=== PATIENT | female | born 1975 | race Caucasian/White ===

== ENCOUNTER 2022-10-15 07:59 | Outpatient (OUT) | payer BC, SELFPAY ==
[2022-10-15 08:21] LABS: Basophils Percent Auto 0.6 % (0.2-2.0); Eosinophils Absolute Auto 0.1 10^3/uL (0.0-0.7); Eosinophils Percent Auto 2.1 % (0.9-7.0); Hematocrit 40.2 % (36.0-48.0); Hemoglobin 14.2 g/dL (12.0-16.0); Immature Granulocytes Abs Auto 0.01 10^3/uL (0.00-0.03); Immature Granulocytes Pct Auto 0.2 % (0.0-0.5); Lymphocytes Absolute Auto 1.8 10^3/uL (1.2-3.8); Lymphocytes Percent Auto 34.6 % (20.5-60.0); Mean Corpuscular HGB Conc 35.3 g/dL (29.9-35.2); Mean Corpuscular Hemoglobin 30.1 pg (26.7-34.0); Mean Corpuscular Volume 85.2 fL (81.0-99.0); Mean Platelet Volume 9.8 fL (9.5-13.5); Monocytes Absolute Auto 0.5 10^3/uL (0.3-0.8); Monocytes Percent Auto 8.8 % (1.7-12.0); Neutrophils Absolute Auto 2.8 10^3/uL (1.4-6.5); Neutrophils Percent Auto 53.7 % (43.0-75.0); Platelet Count 262 10^3/uL (150-450); Red Blood Count 4.72 10^6/uL (4.20-5.40); Red Cell Distribution Width 13.5 % (11.0-15.0); White Blood Count 5.1 10^3/uL (4.0-11.0)
[2022-10-15 09:23] LABS: Estimated Average Glucose 82 mg/dL; Glycohemoglobin A1C 4.5 % (4.5-6.2)
[2022-10-15 13:39] LABS: Alanine Aminotransferase 24 U/L (14-59); Albumin Level 3.5 g/dL (3.4-5.0); Alkaline Phosphatase 55 U/L (46-116); Aspartate Amino Transferase 17 U/L (15-37); BUN Creatinine Ratio 11.9; Bilirubin Total 0.6 mg/dL (0.2-1.0); Calcium 8.9 mg/dL (8.5-10.1); Chloride 106 mmol/L (98-107); Chol HDL Ratio 3.7; Cholesterol 227 mg/dL (<=200); Estimated GFR (African America >60 (>=60); Estimated GFR (Non-African Ame >60 (>=60); Globulin 3.6 g/dL; Glucose 103 mg/dL (74-106); HDL Cholesterol 62 mg/dL (40-60); Sodium 139 mmol/L (136-145); Thyroid Stimulating Hormone 3.821 uIU/mL (0.358-3.740); Total Protein 7.1 g/dL (6.4-8.2); Triglycerides 117 mg/dL (<=150); VLDL CHOLESTEROL 23.4 mg/dL
== END 2022-10-15 08:00 | disposition home or self-care (01) ==
LOC: LAB 08:02
PROVIDERS: PCP Family Medicine; Visit Provider Family Medicine
DX: Z00.00 Encounter for general adult medical examination without abnormal findings (principal)
CPT/HCPCS: 36415; 80053; 80061; 83036; 84443; 85025

== ENCOUNTER 2022-11-07 07:24 | Outpatient (OUT) | payer BC, SELFPAY ==
--- NOTE | 2022-11-07 07:26 | MM_ITS ---
Patient: TIM ALVAREZ Exam Date: 11/07/2022 : 1975 Gender:F Ordering : DR Terry Vale . Admission #: [id number] Family : Order #: [id number] CLICK HERE TO VIEW EXAM RADIOLOGY REPORT PROCEDURE: MM TOMOSYNTHESIS SCREENING BI COMPARISON: MG MAMM SCREEN PATTI W CAD, 10/10/2020. MG MAMM SCREEN 3D PATTI CAD, 11/05/2021. INDICATIONS: Screening Calculator Name NCI Breast Cancer Risk Assessment Tool 5 Year Breast Cancer Risk 1.00% Lifetime Breast Cancer Risk 10.30% Personal Breast Cancer No Personal Ovarian Cancer No Treatments None Family Cancers Aunt-paternal with breast cancer at age ~53; Grandfather-maternal with colon cancer at age ~70. LOCATION: [facility] BREAST COMPOSITION: Scattered areas fibroglandular density. FINDINGS: DIAGNOSTIC CATEGORY 1--NEGATIVE. NO CHANGE FROM COMPARISON ASSESSMENT. Scattered benign-appearing calcifications are present. Scattered benign-appearing nodules are present. RIGHT BREAST: No significant suspicious finding. LEFT BREAST: No significant suspicious finding. RECOMMENDATIONS: ROUTINE MAMMOGRAM AND CLINICAL EVALUATION IN 12 MONTHS. PLEASE NOTE: A NORMAL MAMMOGRAM DOES NOT EXCLUDE THE POSSIBILITY OF BREAST CANCER. A CLINICALLY SUSPICIOUS PALPABLE LUMP SHOULD BE BIOPSIED. Dictated by: Nicola Barraza MD on 11/07/2022 at 09:24 Approved by: Nicola Barraza MD on 11/07/2022 at 09:27
== END 2022-11-07 07:25 | disposition home or self-care (01) ==
LOC: MAMMO 07:24
PROVIDERS: PCP Family Medicine; Visit Provider Family Medicine
DX: Z12.31 Encounter for screening mammogram for malignant neoplasm of breast (principal); Z80.3 Family history of malignant neoplasm of breast; Z80.0 Family history of malignant neoplasm of digestive organs
CPT/HCPCS: 77063; 77067

== ENCOUNTER 2023-01-08 08:00 | Outpatient (OUT) | payer BC, SELFPAY ==
[2023-01-08] MEDS: COVID VAC 23-24(12UP)MODERNA/PF 50 MCG/0.5 ML VIAL IM (16:00)
== END 2023-01-08 08:01 | disposition home or self-care (01) ==
LOC: VACCLI 02-27 09:23
PROVIDERS: PCP Family Medicine; Visit Provider Family Medicine
DX: Z23 Encounter for immunization (principal)
CPT/HCPCS: 90480; 91322

== ENCOUNTER 2023-06-08 22:14 | Outpatient (REF) | payer BC, SELFPAY ==
--- OUTSIDE RECORDS SUMMARY | 2023-06-08 22:18 | XMS_ITS | CCD ---
Author Organization [facility] Care Team Providers Care Bookstore Clerk Name Role Phone GERALD, DR BRANTLEY Admitting Unavailable HOY, DR BRANTLEY Attending Unavailable HOY, DR BRANTLEY Consulting Unavailable KARASIK, DR REAL Admitting Unavailable KARASIK, DR REAL Attending Unavailable KARASIK, DR REAL Consulting Unavailable ELAINE, TIP Admitting Unavailable ELAINE, TIP Attending Unavailable ELAINE, TIP Consulting Unavailable KARASIK, DR REAL Admitting Unavailable KARASIK, DR REAL Attending Unavailable NADERER, DR JIMMY Medrano Primary Care Unavailable KARASIK, DR REAL Consulting Unavailable WEST, DR FARZDA Robles Consulting Unavailable ZIEBER, DR ALESSANDRO Ansari Consulting Unavailable PAY, DR SALAZAR Admitting Unavailable PAY, DR SALAZAR Attending Unavailable PAY, DR SALAZAR Consulting Unavailable NADERER, JIMMY Attending Unavailable NILL, Miquel Ansari Attending Unavailable Problems Active Problems Problem Classification Problem Date Documented Date Episodic/Chronic Other female genital disorders (4 sources) Hypertrophy of uterus; Translations: [HYPERTROPHY OF UTERUS] Onset: 11-05-2021 Episodic Other female genital disorders (1 source) Noninflammatory disorder of uterus, unspecified; Translations: [NONINFLAMMATORY DISORDER UTERUS UNS] Onset: 11-07-2021 Episodic Other screening for suspected conditions (not mental disorders or infectious disease) (5 sources) Encounter for screening mammogram for malignant neoplasm of breast; Translations: [Encounter for screening for malignant neoplasm of cervix] Onset: 07-17-2021 Episodic Residual codes; unclassified (1 source) Family history of malignant neoplasm of breast; Translations: [FAMILY HX MALIG NEOPLASM OF BREAST] Onset: 11-07-2021 Episodic Residual codes; unclassified (1 source) Family history of malignant neoplasm of digestive organs; Translations: [FAM HX MALIG NEOPLASM DIGESTIV ORGN] Onset: 11-07-2021 Episodic Unclassified (3 sources) CONTACT W/AND (SUSP) EXPOS COVID-19; Translations: [CONTACT W/AND (SUSP) EXPOS COVID-19] Onset: 09-20-2021 Past or Other Problems Problem Classification Problem Date Documented Date Episodic/Chronic Administrative/social admission (4 sources) Encounter for pre-employment examination; Translations: [ENCOUNTER FOR PRE-EMPLOYMENT EXAM] Onset: 02-22-2021 Episodic Immunizations and screening for infectious disease (1 source) Encounter for screening for human papillomavirus (HPV); Translations: [ENC SCREENING HUMAN PAPILLOMAVIRUS] Onset: 07-18-2021 Episodic Unclassified (1 source) CONTACT W/AND (SUSP) EXPOS COVID-19; Translations: [CONTACT W/AND (SUSP) EXPOS COVID-19] Onset: 09-16-2021 Results Test Name Value Interpretation Reference Range Facil ity Physician Referralon 024 Physician Referral [id number] [id number] Normal [facility] US PELVIS AND TRANSVAGon US PELVIS AND TRANSVAG Begin Addendum #1 Comparison made to an outside study dated 03/23/2017. No report available. The posterior myometrial mass was not definitively seen on the prior exam. A fibroid is still favored Original Report EXAMINATION: US PELVIS AND TRANSVAG HISTORY: Hypertrophy of uterus COMPARISON: No relevant comparison available. FINDINGS: Transabdominal and transvaginal images The uterus is prominent in size, normal in contour measuring 9.2 x 4.8 x 4.8 cm. Posterior myometrial hypoechogenic lesion measuring 1 cm. Endometrium measures 6 mm, normal. Areas of anechoic echogenicity and calcification the cervix, nabothian cysts are favored The ovaries are not visualized No free fluid. IMPRESSION: Prominent uterus with a 1 cm posterior myometrial mass, a fibroid is favored. Normal [facility] MG MAMM SCREEN 3D PATTI CADon 11-05-2021 MG MAMM SCREEN 3D PATTI CAD Patient: TIM ALVAREZ Exam Date: 11/05/2021 : 1975 Gender:F Ordering : DR FARHAN DUMONT . Admission #: [id number] Family : Order #: [id number] CLICK HERE TO VIEW EXAM RADIOLOGY REPORT PROCEDURE: MAMMOGRAM SCREENING 3D BILATERAL CAD COMPARISON: MG MAMM SCREEN PATTI W CAD, 10/10/2020. INDICATIONS: Screening mammography Calculator Name NCI Breast Cancer Risk Assessment Tool 5 Year Breast Cancer Risk 0.90% Lifetime Breast Cancer Risk 10.50% Personal Breast Cancer No Personal Ovarian Cancer No Treatments None Family Cancers Aunt-paternal with breast cancer at age 53; Grandfather-maternal with colon cancer at age 70. LOCATION: [facility] BREAST COMPOSITION: Scattered areas fibroglandular density. FINDINGS: DIAGNOSTIC CATEGORY 1--NEGATIVE. RIGHT BREAST: No significant suspicious finding. No significant change has occurred. LEFT BREAST: No significant suspicious finding. No significant change has occurred. RECOMMENDATIONS: ROUTINE MAMMOGRAM AND CLINICAL EVALUATION IN 12 MONTHS. PLEASE NOTE: A NORMAL MAMMOGRAM DOES NOT EXCLUDE THE POSSIBILITY OF BREAST CANCER. A CLINICALLY SUSPICIOUS PALPABLE LUMP SHOULD BE BIOPSIED. Dictated by: Alessandro Taylor M.D. on 11/06/2021 at 10:35 Approved by: Alessandro Taylor M.D. on 11/06/2021 at 10:44 Normal [facility] SYMPTOMATIC COVID-19 ANTIGEN on 09-16-2021 EUA Statement SEE BELOW Normal [facility] Comment on above: Result Comment: This test has not been FDA cleared or approved, but has been authorized by the FDA under an Emergency Use Authorization (EUA) for use by authorized laboratories certified under CLIA that meet the requirements to perform moderate or high complexity testing. This test has been authorized only for the detection of proteins from SARS-CoV-2, not for any other viruses or pathogens. The emergency use of this test is authorized for the duration of the declaration that circumstances exist justifying the authorization of emergency use of in vitro diagnostic tests for detection and/or diagnosis of Covid-19 under section 564(b)(1) of the Act, 21 U.S.C. 360bbb-3(b)(1), unless the declaration is terminated or authorization is revoked sooner. Performed By: #### C BRIDGETTES #### [facility] [address] [place] [address] Dr. Yvette Deewy SARS-CoV-2 (COVID-19) RNA LEONIE+probe Ql (Unsp spec) Negative Normal NEGATIVE [facility] Comment on above: Performed By: #### C BRIDGETTES #### [facility] [address] [address] [address] Yvette Dewey PAP ACOG PANEL 2: 30 to 65on 07-24-2021 . . Normal [facility] Comment on above: Result Comment: Perf ormed at: WB Performed By: #### [id number] #### [facility] [address] [address] [address] Yvette Dewey Age Gdln ACOG Testing 30-65 Normal [facility] Comment on above: Performed By: #### [id number] #### [facility] [address] [address] [address] Yvette Dewey DIAGNOSIS: Comment Normal [facility] Comment on above: Result Comment: NEGA TIVE FOR INTRAEPITHELIAL LESION OR MALIGNANCY. Performed at: WB Performed By: #### [id number] #### [facility] [address] [place] [address] Dr. Yvette Dewey HPV Aptima Negative Normal Negative [facility] Comment on above: Result Comment: This nucleic acid amplification test detects fourteen high-risk HPV types (16,18,31,33,35,39,45,51,52,56,58,59,66,68) without differentiation. Performed at: =G Performed By: #### [id number] #### [facility] [address] [place] [address] Dr. Yvette Dewey Methodology: Comment Normal [facility] Comment on above: Result Comment: This liquid based ThinPrep(R) pap test was screened with the use of an image guided system. Performed at: WB Performed By: #### [id number] #### [facility] [address] [place] [address] Dr. Yvette Dewey Note: Comment Normal [facility] Comment on above: Result Comment: The Pap smear is a screening test designed to aid in the detection of premalignant and malignant conditions of the uterine cervix. It is not a diagnostic procedure and should not be used as the sole means of detecting cervical cancer. Both false-positive and false-negative reports do occur. . Performed at: WB Performed By: #### [id number] #### [facility] [address] [place] [address] Dr. Yvette Dewey Performed by: Comment Normal [facility] Comment on above: Result Comment: Ellen Carter, Supervisory Event Executive (ASCP) Performed at: WB Performed By: #### [id number] #### [facility] [address] [place] [address] Dr. Yvette Dewey Specimen adequacy: Comment Normal [facility] Comment on above: Result Comment: Sati sfactory for evaluation. Endocervical and/or squamous metaplastic cells (endocervical component) are present. Performed at: WB Performed By: #### [id number] #### [facility] [address] [place] [address] Dr. Yvette Dewey QUANTIFERON TB GOLD PLUS (NO N-INC)on 02-25-2021 Comment Incubation performed. Normal [facility] Comment on above: Performed By: #### Q NTTBG #### [facility] [address] [place] [address] Dr. Yvette Dewey Criteria Comment Normal [facility] Comment on above: Result Comment: The QuantiFERON-TB Gold Plus result is determined by subtracting the Nil value from either TB antigen (Ag) tube. The mitogen tube serves as a control for the test. Performed By: #### Q NTTBG #### [facility] [address] [place] [address] Dr. Yvette Dewey Mitogen Value >10.00 Normal [facility] Comment on above: Performed By: #### Q NTTBG #### [facility] [address] [place] [address] Dr. Yvette Dewey Nill Value 0.02 IU/mL [facility] Comment on above: Performed By: #### Q NTTBG #### [facility] [address] [place] [address] Dr. Yvette Dewey Quantiferon Gold Plus Negative Normal Negative [facility] Comment on above: Result Comment: Chem iluminescence immunoassay methodology Performed By: #### Q NTTBG #### [facility] [address] [place] [address] Dr. Yvette Dewey TB1 Ag Value 0.28 IU/mL Normal [facility] Comment on above: Performed By: #### Q NTTBG #### [facility] [address] [place] [address] Dr. Yvette Dewey TB2 Ag Value 0.35 IU/mL Normal [facility] Comment on above: Performed By: #### Q NTTBG #### [facility] [address] [place] [address] Dr. Yvette Dewey HEPATITIS B SURFACE ANTIBODY , QUANTon 02-23-2021 Hepatitis B Surf AB Quant 19.4 mIU/mL Normal Immunity>9.9 [facility] Comment on above: Result Comment: Stat us of Immunity Anti-HBs Level Inconsistent with Immunity 0.0 - 9.9 Consistent with Immunity >9.9 Performed By: #### H EPBSRF #### [facility] [address] [place] [address] Dr. Yvette Dewey MMR IMMUNITYon 02-23-2021 Mumps Abs, IgG 38.3 AU/mL Normal Immune >10.9 [facility] Comment on above: Result Comment: Nega tive <9.0 Equivocal 9.0 - 10.9 Positive >10.9 A positive result generally indicates past exposure to Mumps virus or previous vaccination. Performed By: #### M MRIMMU #### [facility] [address] [place] [address] Dr. Yvette Dewey Rubella Antibodies, IgG 1.76 index Normal Immune >0.99 [facility] Comment on above: Result Comment: Non- immune <0.90 Equivocal 0.90 - 0.99 Immune >0.99 Performed By: #### M MRIMMU #### [facility] [address] [place] [address] Dr. Yvette Dewey Rubeola Ab, IgG 39.8 AU/mL Normal Immune >16.4 [facility] Comment on above: Result Comment: Nega tive <13.5 Equivocal 13.5 - 16.4 Positive >16.4 Presence of antibodies to Rubeola is presumptive evidence of immunity except when acute infection is suspected. Performed By: #### M MRIMMU #### [facility] [address] [place], [place] [address] Dr. Yvette Dewey VARICELLA IGG ABon 1 Varicella Zoster IgG >4000 Normal Immune >165 [facility] Comment on above: Result Comment: Nega tive <135 Equivocal 135 - 165 Positive >165 A positive result generally indicates exposure to the pathogen or administration of specific immunoglobulins, but it is not indication of active infection or stage of disease. Performed By: #### V ARCEL #### [facility] [address] [place], [place] [address] Dr. Yvette Dewey Encounters Encounter Date Encounter Type Care Provider Facility Start: 04-28-2023 ambulatory Miquel PARAR Facility :[facility] Start: 03-31-2023 ambulatory Miquel PARRA [facility] Start: 03-30-2023 End: 03-30-2023 ambulatory JIMMY DAS Not Available Start: 01-17-2022 End: 01-18-[address] FERCHO DUARTE Facility:[facility] Start: 11-05-2021 End: 11-06-[address] FARHAN DUMONT Facility:[facility] Start: 09-16-2021 End: 09-17-2021 ambulatory TIP HENRY Facility:[facility] Start: 07-17-2021 End: 07-17-[address] FARHAN DUMONT Facility:[facility] Start: 02-22-2021 End: 02-23-[address] MARTIN ROMAN Facility:[facility] Payers Date Payer Category Payer Unknown [id number] 2019 Unknown [id number] 1975 Unknown [id number] .. [id number] 1975 Unknown [id number] 1975 Unknown [id number] 1975 Unknown [id number] 1975 Unknown [id number] 2.16.8 [id number] 1959 Self-pay Unknown [id number] 2.16.84 [id number] Unknown [id number] 2.16.84 [id number] Summary Purpose Family History No Family History Records FoundNo Family History Records FoundNo Family History Records Found Advance Directives No Advanced Directives Records FoundNo Advanced Directives Records FoundNo Advanced Directives Records Found Additional Source Comments INFORMATION SOURCE (unrecogn ized section and content) DATE CREATED AUTHOR 01/21/2022 [facility] DATE CREATED AUTHOR AUTHOR'S ORGANIZ ATION 03/30/2023 [facility] EPIC DATE CREATED AUTHOR AUTHOR'S ORGANIZ ATION 04/24/2023 [facility] FOR RECORDS PERTAINING TO PATIENTS WHO ARE OR HAVE BEEN ENROLLED IN A CHEMICAL DEPENDENCY/SUBSTANCEABUSE PROGRAM, SOME INFORMATION MAY BE OMITTED. This clinical summary was aggregated from multiple sources. Caution should be exercised in using it in the provision of clinical care. This summary normalizes information from multiple sources, and as a consequence, information in this document may materially change the coding, format and clinical context of patient data. In addition, data may be omitted in some cases. CLINICAL DECISIONS SHOULD BE BASED ON THE PRIMARY CLINICAL RECORDS. [facility]. provides no warranty or guarantee of the accuracy or completeness of information in this document.
[2023-06-12 13:10] LABS: Age Gdln ACOG Testing Note (.); HPV Aptima Negative (Negative); IGP, Aptima HPV, rfx 16/18,45 Note (.)
== END 2023-06-08 22:15 | disposition home or self-care (01) ==
LOC: LAB 22:14
PROVIDERS: PCP Family Medicine; Visit Provider Physician Assistant
DX: Z01.419 Encounter for gynecological examination (general) (routine) without abnormal findings (principal)
CPT/HCPCS: 87624; G0145

== ENCOUNTER 2023-12-15 17:41 | Outpatient (OUT) | payer OTHER, SELFPAY ==
--- OUTSIDE RECORDS SUMMARY | 2023-12-15 17:45 | XMS_ITS | CCD ---
Author Organization [facility] Care Team Providers Care Car Top Bolter Name Role Phone GERALD, DR BRANTLEY Admitting [...] KARASIK, DR REAL Consulting Unavailable WEST, DR FARZAD Robles Consulting Unavailable ZIEBER, DR ALESSANDRO Ansari Consulting Unavailable PAY, DR SALAZAR Admitting Unavailable PAY, DR SALAZAR Attending Unavailable PAY, DR SALAZAR Consulting Unavailable NILL, Miquel Ansari Attending Unavailable NADERER, JIMMY Attending Unavailable ALEKSEY, KALA Attending Unavailable Problems Active Problems Problem Classification [...] Facil ity Physician Referralon 024 Physician Referral [phone] [id number] Normal [facility] US PELVIS AND TRANSVAGon US PELVIS [...] mass, a fibroid is favored. Normal [facility] MG MAMM SCREEN 3D PATTI CADon 11-05-2021 MG MAMM SCREEN 3D PATTI CAD Patient: TIM ALVAREZ Exam Date: 11/05/2021 : 1975 Gender:F Ordering : DR FARHAN DUMONT . Admission #: [id number] Family : Order #: [id number] CLICK HERE TO VIEW EXAM RADIOLOGY REPORT [...] colon cancer at age 70. LOCATION: [facility] BREAST COMPOSITION: Scattered areas fibroglandular [...] Taylor M.D. on 11/06/2021 at 10:44 Normal [facility] SYMPTOMATIC COVID-19 ANTIGEN on 09-16-2021 EUA Statement SEE BELOW Normal [facility] Comment on above: Result Comment: This test [...] is revoked sooner. Performed By: #### C VDAGS #### [facility] [address] [place] [address] Dr. Yvette Dewey SARS-CoV-2 (COVID-19) RNA LEONIE+probe Ql (Unsp spec) Negative Normal NEGATIVE [facility] Comment on above: Performed By: #### C VDAGS #### [facility] [address] [place] [address] Dr. Yvette Dewey PAP ACOG PANEL 2: 30 to 65on 07-24-2021 . . Normal [facility] Comment on above: Result Comment: Perf ormed at: WB Performed By: #### [id number] #### [facility] [address] [place] [address] Dr. Yvette Dewey Age Gdln ACOG Testing -65 [facility] Comment on above: Performed By: #### [id number] #### [facility] [address] [place] [address] Dr. Yvette Dewey DIAGNOSIS: Comment Normal [facility] Comment on above: Result Comment: NEGA TIVE FOR INTRAEPITHELIAL LESION OR MALIGNANCY. Performed at: WB Performed By: #### [id number] #### [facility] [address] [place] [address] Dr. Yvette Dewey HPV Aptima Negative Normal Negative [facility] Comment on above: Result Comment: This nucleic acid amplification test detects fourteen high-risk HPV types (16,18,31,33,35,39,45,51,52,56,58,59,66,68) without differentiation. Performed at: =G Performed By: #### [id number] #### [facility] [address] [place] [address] Dr. Yvette Dewey Methodology: Comment Normal [facility] Comment on above: Result Comment: This liquid based ThinPrep(R) pap test was screened with the use of an image guided system. Performed at: WB Performed By: #### [id number] #### [facility] [address] [place] [address] Dr. Yvette Dewey Note: Comment Normal [facility] Comment on above: Result Comment: The Pap smear is a screening test designed to aid in the detection of premalignant and malignant conditions of the uterine cervix. It is not a diagnostic procedure and should not be used as the sole means of detecting cervical cancer. Both false-positive and false-negative reports do occur. . Performed at: WB Performed By: #### [id number] #### [facility] [address] [place] [address] Dr. Yvette Dewey Performed by: Comment Normal [facility] Comment on above: Result Comment: Ellen Carter, Supervisory Social Work Coordinator (ASCP) Performed at: WB Performed By: #### [id number] #### [facility] [address] [place] [address] Dr. Yvette Dewey Specimen adequacy: Comment Normal [facility] Comment on above: Result Comment: Sati sfactory for evaluation. Endocervical and/or squamous metaplastic cells (endocervical component) are present. Performed at: WB Performed By: #### 4 [id number] #### [facility] [address] [place] [address] Dr. Yvette Dewey QUANTIFERON TB GOLD PLUS (NO N-INC)on 02-25-2021 Comment Incubation performed. Normal [facility] Comment on above: Performed By: #### Q NTTBG #### [facility] [address] [place] [address] Dr. Yvette Dewey Criteria Comment [facility] Comment on above: Result Comment: The QuantiFERON-TB Gold Plus result is determined by subtracting the Nil value from either TB antigen (Ag) tube. The mitogen tube serves as a control for the test. Performed By: #### Q NTTBG #### [facility] [address] [place] [address] Dr. Yvette Dewey Mitogen Value >10.00 [facility] Comment on above: Performed By: #### Q NTTBG #### [facility] [address] [place] [address] Dr. Yvette Dewey Nill Value 0.02 IU/mL [facility] Comment on above: Performed By: #### Q NTTBG #### [facility] [address] [place] [address] Dr. Yvette Dewey Quantiferon Gold Plus Negative Normal Negative [facility] Comment on above: Result Comment: Chem iluminescence immunoassay methodology Performed By: #### Q NTTBG #### [facility] [address] [place] [address] Dr. Yvette Dewey TB1 Ag Value 0.28 IU/mL Normal [facility] Comment on above: Performed By: #### Q NTTBG #### [facility] [address] [place] [address] Dr. Yvette Dewey TB2 Ag Value 0.35 IU/mL Normal [facility] Comment on above: Performed By: #### Q NTTBG #### [facility] [address] [place] [address] Dr. Yvette Dewey HEPATITIS B SURFACE ANTIBODY , QUANTon 02-23-2021 Hepatitis B Surf AB Quant 19.4 mIU/mL Normal Immunity>9.9 [facility] Comment on above: Result Comment: Stat us of Immunity Anti-HBs Level Inconsistent with Immunity 0.0 - 9.9 Consistent with Immunity >9.9 Performed By: #### H EPBSRF #### [facility] [address] [place] [address] Dr. Yvette Dewey MMR IMMUNITYon 02-23-2021 Mumps Abs, IgG 38.3 AU/mL Normal Immune >10.9 [facility] Comment on above: Result Comment: Nega tive <9.0 Equivocal 9.0 - 10.9 Positive >10.9 A positive result generally indicates past exposure to Mumps virus or previous vaccination. Performed By: #### M MRIMMU #### [facility] [address] [place] [address] Dr. Yvette Dewey Rubella Antibodies, IgG 1.76 index Normal Immune >0.99 [facility] Comment on above: Result Comment: Non- immune <0.90 Equivocal 0.90 - 0.99 Immune >0.99 Performed By: #### M MRIMMU #### [facility] [address] [place] [address] Dr. Yvette Dewey Rubeola Ab, IgG 39.8 AU/mL Normal Immune >16.4 [facility] Comment on above: Result Comment: Nega tive <13.5 Equivocal 13.5 - 16.4 Positive >16.4 Presence of antibodies to Rubeola is presumptive evidence of immunity except when acute infection is suspected. Performed By: #### M MRIMMU #### [facility] [address] [place], [place] [address] Dr. Yvette Dewey VARICELLA IGG ABon Varicella Zoster IgG >4000 Normal Immune >165 [facility] Comment on above: Result Comment: Nega tive <135 Equivocal 135 - 165 Positive >165 A positive result generally indicates exposure to the pathogen or administration of specific immunoglobulins, but it is not indication of active infection or stage of disease. Performed By: #### V ARCEL #### [facility] [address] [place], [place] [address] Dr. Yvetet Dewey Encounters Encounter Date Encounter Type Care Provider Facility Start: 06-08-2023 End: 06-08-2023 ambulatory KALA RYDER Not Available Start: 04-28-2023 ambulatory Miquel PARRA Facility :[facility] Start: 03-31-2023 ambulatory Miquel PARRA Facility:[facility] Start: 03-30-2023 End: 03-30-2023 ambulatory JIMMY DAS Not Available Start: 01-17-2022 End: 01-18-[address] FERCHO DUARTE Facility:[facility] Start: 11-05-2021 End: 11-06-[address] FARHAN DUMONT Facility:[facility] Start: 09-16-2021 End: 09-17-2021 ambulatory TIP HENRY Facility:[facility] Start: 07-17-2021 End: 07-17-[address] FARHAN DUMONT Facility:[facility] Start: 02-22-2021 End: 02-23-[address] MARTIN ROMAN Facility:[facility] Payers Date Payer Category Payer Unknown [id number] 2019 Unknown [id number] 1975 Unknown [id number] 2.16.84 [id number] 1975 Unknown [id number] 2.16.84 [id number] 1975 Unknown [id number] 2.16.84 [id number] 1975 Unknown [id number] 2.16.8 [id number] 1975 Unknown [id number] 2.16.84 [id number] 1975 Unknown [id number] 2.16.84 [id number] 1959 Self-pay Unknown [id number] 2.16.84 [id number] Unknown [id number] 2.16.84 [id number] Summary Purpose Family History No Family History Records FoundNo Family History Records FoundNo Family History Records Found Advance Directives No Advanced Directives Records FoundNo Advanced Directives Records FoundNo Advanced Directives Records Found Additional Source Comments INFORMATION SOURCE (unrecogn ized section and content) DATE CREATED AUTHOR 01/21/2022 [facility] DATE CREATED AUTHOR AUTHOR'S ORGANIZ ATION 04/24/2023 [facility] DATE CREATED AUTHOR AUTHOR'S ORGANIZ ATION 06/09/2023 [facility] FOR RECORDS PERTAINING TO PATIENTS WHO ARE [...] BE BASED ON THE PRIMARY CLINICAL RECORDS. [facility] [employer] provides no warranty or guarantee of the accuracy or completeness of information in this document.
--- NOTE | 2023-12-15 18:10 | MM_ITS ---
Patient Name: TIM ALVAREZ MR#: [id number] : 1975 Exam Date: 12/15/2023 Ordering Doctor: DR Terry Vale . RADIOLOGY REPORT PROCEDURE: MM TOMOSYNTHESIS SCREENING BI COMPARISON: MM TOMOSYNTHESIS SCREENING BI, 11/07/2022. MG MAMM SCREEN 3D PATTI CAD, 11/05/2021. INDICATIONS: Screening Calculator Name NCI Breast Cancer Risk Assessment Tool 5 Year Breast Cancer Risk 1.00% Lifetime Breast Cancer Risk 10.20% Personal Breast Cancer No Personal Ovarian Cancer No Treatments None Family Cancers Mother with lung cancer at age 69; Aunt-paternal with breast cancer at age ~53; Grandfather-maternal with colon cancer at age ~70. LOCATION: [facility] BREAST COMPOSITION: There are scattered areas of fibroglandular density. FINDINGS: DIAGNOSTIC CATEGORY 1--NEGATIVE. NO CHANGE FROM COMPARISON ASSESSMENT. Scattered benign-appearing calcifications are present. RIGHT BREAST: No significant suspicious finding. Stable focal asymmetry 6 o'clock mid breast LEFT BREAST: No significant suspicious finding. RECOMMENDATIONS: ROUTINE MAMMOGRAM AND CLINICAL EVALUATION IN 12 MONTHS. PLEASE NOTE: A NORMAL MAMMOGRAM DOES NOT EXCLUDE THE POSSIBILITY OF BREAST CANCER. A CLINICALLY SUSPICIOUS PALPABLE LUMP SHOULD BE BIOPSIED. Dictated by: Nicola Barraza MD on 12/16/2023 at 08:00 Approved by: Nicola Barraza MD on 12/16/2023 at 08:02
== END 2023-12-15 17:42 | disposition home or self-care (01) ==
LOC: MAMMO 17:42
PROVIDERS: PCP Family Medicine; Visit Provider Family Medicine
DX: Z12.31 Encounter for screening mammogram for malignant neoplasm of breast (principal); Z80.1 Family history of malignant neoplasm of trachea, bronchus and lung; Z80.3 Family history of malignant neoplasm of breast; Z80.0 Family history of malignant neoplasm of digestive organs
CPT/HCPCS: 77063; 77067

== ENCOUNTER 2024-11-26 08:51 | Outpatient (OUT) | payer BC, SELFPAY ==
--- OUTSIDE RECORDS SUMMARY | 2024-11-26 08:57 | XMS_ITS | Encounter Summary ---
Author Organization [facility] Address [address] [place] [address] Phone Care Team Providers Care Summer School Coordinator Name Role Phone Unavailable Primary Care Provider Unavailabl e Encounter Details Date Type Department Care Team (Late st Contact Info) Description 10/17/2024 Patient Risk Score ACO Care Management [address] [place] [address] Social History Tobacco Use Types Packs/Day Years Used Date Smoking Tobacco: Never Assessed Comments Unknown Sex and Gender Information Value Date Recorded Sex Assigned at Not on file Legal Sex Female 3:43 PM EST Gender Identity Not on file Sexual Orientation Not on file documented as of this encounter Plan of Treatment Not on file documented as of this encounter Visit Diagnoses Not on filedocumented in this encounter
--- OUTSIDE RECORDS SUMMARY | 2024-11-26 08:57 | XMS_ITS | Encounter Summary ---
Author Organization [facility] Address [address] [place] [address] Phone Care Team Providers Care Experimental Plastics Fabricator Name Role Phone Unavailable Primary Care Provider Unavailabl e Encounter Details Date Type Department Care Team (Late st Contact Info) Description 09/16/2024 Patient Risk Score ACO Care Management [address] [place] [address] Social History Tobacco Use Types [...]
--- OUTSIDE RECORDS SUMMARY | 2024-11-26 08:57 | XMS_ITS | Clinical Summary ---
Author Organization [facility] Address [address] [place] [address] Phone Care Team Providers Care Construction Accountant Name Role Phone Unavailable Primary Care Provider Unavailabl e Encounters Date Type Department Care Team Description 11/17/2024 Patient Risk Score ACO Care Management [address] [place] [address] 10/17/2024 Patient Risk Score ACO Care Management [address] [place] [address] 09/16/2024 Patient Risk Score ACO Care Management [address] [facility] [address] [place] [address] from Last 3 Months Social History Tobacco Use Types Packs/Day Years Used Date Smoking Tobacco: Never Assessed Comments Unknown Sex and Gender Information Value Date Recorded Sex Assigned at Not on file Legal Sex Female 3:43 PM EST Gender Identity Not on file Sexual Orientation Not on file Plan of Treatment Health Maintenance Due Date Last Done Comments CT Colonography 1975 Colonoscopy 1975 Colorectal Cancer Screening 1975 FIT-DNA (Cologuard) 1975 FIT 1975 HIV Screening 1975 Lipid Panel 1975 Sigmoidoscopy 1975 Yearly Adult Physical 1975 MMR Vaccines (1 of 1 - Stand robert series) 10/10/1976 Hepatitis C Screening 10/10/1993 Hepatitis B Vaccines (1 of 3 - 19+ 3-dose series) 10/10/1994 Cervical Cancer Screening 10/10/1996 HPV/Cotest 10/10/1996 Pap Smear 10/10/1996 DTaP/Tdap/Td Vaccines (1 - Tdap) 10/10/1997 Mammogram 12/04/2020 12/05/2019 COVID-19 Vaccine (1 - 2024-2 5 season) 2024 Influenza Vaccine (#1) 2024 Zoster Vaccines (1 of 2) 10/10/2025 HIB Vaccines Aged Out No longer eligi ble based on patient's age to complete this topic HPV Vaccines Aged Out No longer eligi ble based on patient's age to complete this topic Hepatitis A Vaccines Aged Out No long er eligible based on patient's age to complete this topic IPV Vaccines Aged Out No longer eligi ble based on patient's age to complete this topic Meningococcal Vaccine Aged Out No cristian lencho eligible based on patient's age to complete this topic Pneumococcal Vaccine: Pediat rics and At-Risk Adult Patients Aged Out No longer amador gible based on patient's age to complete this topic Rotavirus Vaccines Aged Out No longer eligible based on patient's age to complete this topic Procedures Procedure Name Priority Date/Time Associated Diagnosis Comments MAMMOGRAM - ONBASE SCAN 12/05/2019 from Last 3 Months or Most Recently Relevant to Health Maintenance Results * MAMMOGRAM - ONBASE SCAN (12/05/2019) Anatomical Region Laterality Modality Mammography Narrative 12/05/2019 Ordered by an unspecified provider. us Onbase Conversion IMG BI PROCEDURES Final Result from Last 3 Months or Most Recently Relevant to Health Maintenance
--- OUTSIDE RECORDS SUMMARY | 2024-11-26 08:57 | XMS_ITS | Encounter Summary ---
Author Organization [facility] Address [address] [place] [address] Care Team Providers Care Microelectronics Engineer Name Role Phone Terry Vale MD Primary Care Provider [phone] Terry Vale MD Unavailable Encounter Details Date Type Department Care Team (Late st Contact Info) Description 12/16/2023 Clinisync Result Encounter [facility] Department Unsolicited Terry Vale MD [address] [place] [id number] Social History Tobacco Use Types Packs/Day Years Used Date Smoking Tobacco: Never Smokeless Tobacco: Never Alcohol Use Standard Drinks/Week Comments Yes 0 (1 standard drink = 0.6 oz pur e alcohol) Caffeine intake: none Humiliation, Afraid, Rape, and Kick questionnair e Answer Date Recorded Within the last year, have y ou been afraid of your partner or ex-partner? No 03/29/2023 Within the last year, have y ou been humiliated or emotionally abused in other ways by your partner or ex-partner? No Within the last year, have y ou been kicked, hit, slapped, or otherwise physically hurt by your partner or ex-partner? No 03/29/2023 Within the last year, have y ou been raped or forced to have any kind of sexual activity by your partner or ex-partner? No 03/29/2023 Social Connection and Isolat ion Panel [NHANES] Answer Date Recorded In a typical week, how many times do you talk on the phone with family, friends, or neighbors? More than three times a week 03/29/2023 How often do you get togethe r with friends or relatives? Twice a week 03/29/2023 How often do you attend chur ch or anglican services? Patient declined 03/29/2023 Do you belong to any clubs o r organizations such as zoroastrianism groups, unions, fraternal or athletic groups, or school groups? Patient declined 03/29/2023 How often do you attend meet ings of the clubs or organizations you belong to? Patient declined 03/29/2023 Are you , , di vorced, , never , or living with a partner? 03/29/2023 AUDIT-C Answer Date Recorded Q1: How often do you have a drink containing alc ohol? Monthly or less 03/29/2023 Q2: How many drinks containi ng alcohol do you have on a typical day when you are drinking? 1 or 2 03/29/2023 Q3: How often do you have si x or more drinks on one occasion? Never 03/29/2023 Overall Financial Resource Strain (CARDIA) Answe r Date Recorded How hard is it for you to pa y for the very basics like food, housing, medical care, and heating? Not hard at all 03/29/2023 [facility] - Occupational Stress Questionnaire Answer Date Recorded Do you feel stress - tense, restless, nervous, or anxious, or unable to sleep at night because your mind is troubled all the time - these days? Only a little 03/29/2023 Exercise Vital Sign Answer Date Recorde d On average, how many days pe r week do you engage in moderate to strenuous exercise (like a brisk walk)? 2 days 03/29/2023 On average, how many minutes do you engage in exercise at this level? 20 min 03/29/2023 Hunger Vital Sign Answer Date Recorded Within the past 12 months, y ou worried that your food would run out before you got the money to buy more. Never true 03/29/19 24 Within the past 12 months, t he food you bought just didn't last and you didn't have money to get more. Never true 03/29/2023 PRAPARE - Transportation Answer Date Re corded In the past 12 months, has l ack of transportation kept you from medical appointments or from getting medications? No 03/16 In the past 12 months, has l ack of transportation kept you from meetings, work, or from getting things needed for daily living? No 03/29/2023 Housing Stability Vital Sign Answer Colin e Recorded In the last 12 months, was t here a time when you were not able to pay the mortgage or rent on time? No 03/29/19 24 Number of Places Lived in the Last Year Not on f ile 03/29/2023 In the last 12 months, was t here a time when you did not have a steady place to sleep or slept in a assisted (including now)? Patient refused 03/29/2023 Comments No Sex and Gender Information Value Date Recorded Sex Assigned at Not on file Legal Sex Female 7:17 PM EDT Gender Identity Female 03/29/2023 11:10 AM EST Sexual Orientation Not on file documented as of this encounter Plan of Treatment Upcoming Encounters Date Type Department Care Team (Late st Contact Info) Description 10/03/2025 2:45 PM EDT Office Visit [facility] [address] [place] D [address] [phone] Moni Wayne DO [address] [phone] documented as of this encounter Procedures Procedure Name Priority Date/Time Associated Diagnosis Comments MM TOMOSYNTHESIS SCREENING BI 12/16/2023 8:02 AM EDT documented in this encounter Results * MM TOMOSYNTHESIS SCREENING BI (12/16/2023 8:02 AM EDT) Anatomical Region Laterality Modality Other 12/16/2023 8:02 AM EDT Narrative 12/16/2023 8:03 AM EDT [facility] [id number] Mammography Report Signed Patient: TIM ROCA MR#: [id number] : 1975 Acct:[id number] Age/Sex: 48 / F ADM Date: 12/15/23 Loc: MAMMO Attending Dr: Terry Vale M.D. Ordering Physician: Terry Vale M.D. Results: Date of Service: 12/15/23 Follow Up: Procedure(s): MM tomosynthesis screening BI Accession Number(s): [id number] cc: Terry Vale M.D. Patient Name: TIM ROCA MR#: [id number] : 1975 Exam Date: 12/15/2023 Ordering Doctor: DR Terry Vale . RADIOLOGY REPORT PROCEDURE: MM TOMOSYNTHESIS SCREENING BI COMPARISON: MM TOMOSYNTHESIS SCREENING BI, 11/07/2022. MG MAMM SCREEN 3D PATTI CAD, 11/05/2021. INDICATIONS: Screening Calculator Name NCI Breast Cancer Risk Assessment Tool 5 Year Breast Cancer Risk 1.00% Lifetime Breast Cancer Risk 10.20% Personal Breast Cancer No Personal Ovarian Cancer No Treatments None Family Cancers Mother with lung cancer at age 69; Aunt-paternal with breast cancer at age 53; Grandfather-maternal with colon cancer at age 70. LOCATION: [facility] BREAST COMPOSITION: There are scattered areas of fibroglandular density. FINDINGS: DIAGNOSTIC CATEGORY 1--NEGATIVE. NO CHANGE FROM COMPARISON ASSESSMENT. Scattered benign-appearing calcifications are present. RIGHT BREAST: No significant suspicious finding. Stable focal asymmetry 6 o'clock mid breast LEFT BREAST: No significant suspicious finding. RECOMMENDATIONS: ROUTINE MAMMOGRAM AND CLINICAL EVALUATION IN 12 MONTHS. PLEASE NOTE: A NORMAL MAMMOGRAM DOES NOT EXCLUDE THE POSSIBILITY OF BREAST CANCER. A CLINICALLY SUSPICIOUS PALPABLE LUMP SHOULD BE BIOPSIED. Dictated by: Nicola Barraza MD on 12/16/2023 at 08:00 Approved by: Nicola Barraza MD on 12/16/2023 at 08:02 Dictated By: Nicola Barraza M.D. Signed By: 12/16/23802 DD/ 1 TD/TT: Client Engagement Specialist: Procedure Note Radiology, RadiologistMD - 12/16/2023 [place] [address] Mammography Report Signed Patient: TIM ROCA MMR#: [id number] : 1975Acct:[id number] Age/Sex: 48 / FADM Date: 12/15/23 Loc: MAMMO Attending Dr: Terry Vale M.D. Ordering Physician: Terry Vale M.D.Results: Date of Service: 12/15/23Follow Up: Procedure(s): MM tomosynthesis screening BI Accession Number(s): [id number] cc: Terry Vale M.D. Patient Name: TIM ROCA MR#: [id number] : 1975 Exam Date: 12/15/2023 Ordering Doctor: DR Terry Vale . RADIOLOGY REPORT PROCEDURE: MM TOMOSYNTHESIS SCREENING BI COMPARISON: MM TOMOSYNTHESIS SCREENING BI, 11/07/2022. MG MAMM [id number] PATTI CAD, 11/05/2021. INDICATIONS: Screening Calculator Name NCI Breast Cancer Risk Assessment Tool 5 Year Breast Cancer Risk 1.00% Lifetime Breast Cancer Risk 10.20% Personal Breast Cancer No Personal Ovarian Cancer No Treatments None Family Cancers Mother with lung cancer at age 69; Aunt-paternal with breast cancer at age 53; Grandfather-maternal with colon cancer at age 70. LOCATION: [facility] BREAST COMPOSITION: There are scattered areas of fibroglandulardensity. FINDINGS: DIAGNOSTIC CATEGORY 1--NEGATIVE. NO CHANGE FROM COMPARISON ASSESSMENT. Scattered benign-appearing calcifications are present. RIGHT BREAST: No significant suspicious finding. Stable focal asymmetry6 o'clock mid breast LEFT BREAST: No significant suspicious finding. RECOMMENDATIONS: ROUTINE MAMMOGRAM AND CLINICAL EVALUATION IN 12 MONTHS. PLEASE NOTE: A NORMAL MAMMOGRAM DOES NOT EXCLUDE THE POSSIBILITY OFBREAST CANCER. A CLINICALLY SUSPICIOUS PALPABLE LUMP SHOULD BE BIOPSIED. Dictated by: Nicola Barraza MD on 12/16/2023 at 08:00 Approved by: Nicola Barraza MD on 12/16/2023 at 08:02 Dictated By: Nicola Barraza M.D. Signed By:12/16/23802 DD/ 1 TD/TT: Client Engagement Specialist: Terry Vale MD [facility] Final Result documented in this encounter Visit Diagnoses Not on filedocumented in this encounter Care Teams Microelectronics Engineer Relationship Specialty Start Date End Date Terry Vale MD [address] [place] [phone] PCP - General Family Medicine 06/02/23 Terry Vale MD [address] [place] [phone] PCP - [employer] 06/14/24 documented as of this encounter
--- OUTSIDE RECORDS SUMMARY | 2024-11-26 08:57 | XMS_ITS | Encounter Summary ---
Author Organization [facility] Address [address] [place] [address] Phone Care Team Providers Care Brush And Broom Clipper Name Role Phone Unavailable Primary Care Provider Unavailabl e Encounter Details Date Type Department Care Team (Late st Contact Info) Description 11/17/2024 Patient Risk Score ACO Care Management [address] [place] [address] Social History Tobacco Use Types [...]
--- OUTSIDE RECORDS SUMMARY | 2024-11-26 08:57 | XMS_ITS | Clinical Summary ---
Author Organization [facility] Address [address] [place] [id number] Care Team Providers Care Device Repair Technician Name Role Phone Jatinder White MD Primary Care Provider [phone] Allergies No known active allergies Medications NAPROXEN SODIUM (ALEVE ORAL) Take 1 tablet by mouth as needed. Active acetaminophen (TYLENOL) 325 mg tablet Take 650 mg by mouth every 6 hours as needed. Active Active Problems No known active problems Family History Medical History Relation Comments None Brother 2 lung problem [Other] Father age56 doubl e lung transplant due to Black lung Colon Cancer Maternal Grandfather Diabetes Maternal Grandmother Hypertension Maternal Grandmother Stroke Maternal Grandmother Hypertension Mother Cancer Paternal Grandfather Heart Paternal Grandfather Hypertension Paternal Grandfather Heart Paternal Grandmother Hypertension Paternal Grandmother Relation Status Comments Brother 1 Alive Brother 2 Father Alive Maternal Grandfather Maternal Grandmother Mother Alive Paternal Grandfather Paternal Grandmother Social History Tobacco Use Types Packs/Day Years Used Date Smoking Tobacco: Never Alcohol Use Standard Drinks/Week Comments Yes 0 (1 standard drink = 0.6 oz pur e alcohol) once a month Comments Unknown Sex and Gender Information Value Date Recorded Sex Assigned at Not on file Legal Sex Female 11:04 AM EST Gender Identity Not on file Sexual Orientation Not on file Last Filed Vital Signs Vital Sign Reading Time Taken Comments Blood Pressure 140/87 04/04/2014 9:50 AM EST Pulse 99 04/04/2014 9:50 AM EST Temperature 36.9 C (98.5 F) 04/04/2014 9:50 AM EST Respiratory Rate 16 04/04/2014 9:50 AM EST Oxygen Saturation 96% 04/04/2014 9:50 AM EST Inhaled Oxygen Concentration - - Weight 100.2 kg (221 lb) 04/04/2014 9:50 AM EST Height 166.4 cm (5' 5.5 ) 04/04/2014 9:50 AM EST Body Mass Index 36.22 04/04/2014 9:50 AM EST Plan of Treatment Health Maintenance Due Date Last Done Comments Anxiety Screening 10/10/1993 Depression Screening 10/10/1993 HIV Screening 10/10/1993 Hepatitis C Screening 10/10/1993 DTaP,Tdap,Td Vaccine (1 - Tdap) 10/10/1994 Hepatitis B Vaccine (1 of 3 - 19+ 3-dose series) 10/10 Cervical Cancer Screening 10/10/[address] Colonography 10/10/2020 Cologuard (FIT-DNA) 10/10/2020 Colonoscopy 10/10/2020 Colorectal Cancer Screening 10/10/2020 Diabetes Screening 10/10/2020 Fecal Occult Blood 10/10/2020 Lipid Screening 10/10/2020 Sigmoidoscopy 10/10/2020 Influenza Vaccine (#1) 2024 Care Teams Device Repair Technician Relationship Specialty Start Date End Date Jatinder White MD PCP - General Internal Medicine 04/03/14
--- OUTSIDE RECORDS SUMMARY | 2024-11-26 08:58 | XMS_ITS | CCD ---
Author Organization [facility] Care Team Providers Care Finisher [employer] Name Role Phone GERALD, DR BRANTLEY Admitting Unavailable HOY, DR BRANTLEY Attending Unavailable HOY, DR BRANTLEY Consulting Unavailable KARASIK, DR REAL Admitting Unavailable KARASIK, DR REAL Attending Unavailable KARASIK, DR REAL Consulting Unavailable ELAINE, TIP Admitting Unavailable ELAINE, TIP Attending Unavailable ELAINE, TIP Consulting Unavailable KARASIK, DR REAL Admitting Unavailable KARASIK, DR REAL Attending Unavailable NADERER, DR TERRY Medrano Primary Care Unavailable KARASIK, DR REAL Consulting Unavailable WEST, DR FARZAD Robles Consulting Unavailable ZIEBER, DR ALESSANDRO Ansari Consulting Unavailable PAY, DR SALAZAR Admitting Unavailable PAY, DR SALAZAR Attending Unavailable PAY, DR SALAZAR Consulting Unavailable NILL, Jorge Ansari Attending Unavailable Terry Das MD Primary Care Provider [phone] Terry Das MD Unavailable TERRY DAS Attending Unavailable WILHELM, JORGE Celis Referring Unavailable WILHELM, JORGE Celis Attending Unavailable WILHELM, JORGE Celis Referring Unavailable WILHELM, JORGE Celis Attending Unavailable NATAPRAWIRAMNOI Attending Unavailable TERRY DAS Attending Unavailable Medications Current Medications Medication Drug Class(es) Dates Sig (Normalized) Sig (Original) citalopram 10 mg oral tablet (2 sources) Serotonin Reuptake Inhibitor Start: 11-03-2024 take 1 tablet by mouth once daily citalopram (CeleXA) 10 MG tablet Indications: Stress reaction Take 1 tablet (10 mg) by mouth Daily 30 tablet 2 11/03/2024 Active ethinyl estradiol 0.035 mg / norgestimate 0.25 mg oral tablet (2 sources) Progestin, Estrogen Start: 09-23-2023 End: 04-27-2024 take 1 tablet by mouth once daily Sprintec 28 0.25-35 MG-MCG tablet Indications: Encounter for female family planning counseling TAKE 1 TABLET BY MOUTH EVERY DAY 84 tablet 3 09/23/2023 04/27/2024 Discontinued fexofenadine hydrochloride 180 mg oral tablet (11 sources) Histamine-1 Receptor Antagonist take 1 tablet by mouth once daily fexofenadine (Flora) 180 MG tablet Take 180 mg by mouth Daily Active fluticasone propionate 0.05 mg/actuat metered dose nasal spray (11 sources) Corticosteroid take 2 spray(s) nasal route once daily fluticasone (Flonase) 50 MCG/ACT nasal spray Administer 2 sprays into each nostril Daily Shake gently. Before first use, prime pump. After use, clean tip and replace cap. Active take 2 spray(s) nasa l route in the morning fluticasone (Flonase) 50 MCG/ACT nasal spray Administer 2 sprays into each nostril in the morning. Shake gently. Before first use, prime pump. After use, clean tip and replace cap.. Active meloxicam 15 mg oral tablet (9 sources) Nonsteroidal Anti-inflammatory Drug Start: 06-16-2024 End: 06-16-2025 take 1 tablet by mouth once daily meloxicam (Mobic) 15 MG tablet Indications: Right hip pain Take 1 tablet (15 mg) by mouth Daily 30 tablet 11 06/16/2024 06/16/2025 Active 24 hr metoprolol succinate 25 mg extended release oral tablet (11 sources) beta-Adrenergic Holley Start: 04-27-2024 take 0.5 tablet by mouth once daily metoprolol succinate XL (Toprol-XL) 25 MG 24 hr tablet Indications: Paroxysmal SVT (supraventricular tachycardia) (HCC) TAKE 1/2 TABLET BY MOUTH DAILY 45 tablet 3 04/27/2024 Active predniSONE 50 mg oral tablet (2 sources) Start: 04-27-2024 End: 05-03-2024 take 1 tablet by mouth once daily predniSONE (Deltasone) 50 MG tablet Indications: Chronic right shoulder pain Take 1 tablet (50 mg) by mouth Daily for 6 days 6 tablet 04/27/2024 05/03/2024 Active Completed/Discontinued Medications Medication Drug Class(es) Dates Sig (Normalized) Sig (Original) betamethasone 3 mg/ml / betamethasone acetate 3 mg/ml injectable suspension (4 sources) Corticosteroid Start: 06-30-2024 End: 06-30-2024 betamethasone acetate-betamethason e sodium phosphate (Celestone) injection 6 mg Start: 06-30-2024 End: 06-30-2024 6 mg, Intra-articular, Once PRN Procedure, Starting on Carolina 06/30/24 at 1627, For 1 dose 200 actuat levalbuterol 0.045 mg/actuat metered dose inhaler (11 sources) beta2-Adrenergic Agonist Start: 07-15-2023 End: 11-03-2024 take 2 puff(s) by inhalation every six hours for wheezing levalbuterol (Xopenex) 45 MCG/ACT inhaler Indications: Upper respiratory tract infection, unspecified type INHALE 2 PUFFS EVERY 6 HOURS IF NEEDED FOR WHEEZING. 15 g 11 07/15/2023 11/03/2024 Discontinued tranexamic acid 650 mg oral tablet (2 sources) Antifibrinolytic Agent Start: 06-21-2024 End: 06-30-2024 take 2 tablets by mouth in the morning, then take 2 tablets by mouth in the evening, then take 2 tablets by mouth at bedtime tranexamic acid (Lysteda) 650 MG tablet tablet Indications: Menorrhagia with regular cycle Take 2 tablets (1,300 mg) by mouth in the morning and 2 tablets (1,300 mg) in the evening and 2 tablets (1,300 mg) before bedtime. Do all this for 5 days. 30 tablet 06/21/2024 06/30/2024 Problems Active Problems Problem Classification Problem Date Documented Date Episodic/Chronic Anxiety disorders (4 sources) Acute stress disorder; Translations: [Acute stress reaction] Onset: 11-03-2024 11-03-2024 Chronic Cardiac dysrhythmias (11 sources) Paroxysmal supraventricular tachycardia; Translations: [Paroxysmal SVT (supraventricular tachycardia)] Onset: 03-30-2023 03-30-2023 Chronic Contraceptive and procreative management (2 sources) Patient encounter status; Translations: [Encounter for other general counseling and advice on contraception] 09-29-2024 Episodic Gastritis and duodenitis (11 sources) Chronic superficial gastritis; Translations: [Chronic superficial gastritis without bleeding] Onset: 03-30-2023 Resolved: 11-03-2024 03-30-2023 Chronic Menopausal disorders (6 sources) Perimenopausal state; Translations: [Menopausal and female climacteric states] Onset: 11-03-2024 09-29-2024 Chronic Menstrual disorders (2 sources) Irregular periods; Translations: [Irregular menstruation, unspecified] 09-29-2024 Chronic Other female genital disorders (4 sources) Hypertrophy of uterus; Translations: [HYPERTROPHY OF UTERUS] Onset: 11-05-2021 Episodic Other female genital disorders (1 source) Noninflammatory disorder of uterus, unspecified; Translations: [NONINFLAMMATORY DISORDER UTERUS UNS] Onset: 11-07-2021 Episodic Other non-traumatic joint disorders (2 sources) Hip pain; Translations: [Pain in right hip] 06-15-2024 Episodic Other non-traumatic joint disorders (6 sources) Joint pain; Translations: [Pain in unspecified joint] Onset: 11-03-2024 09-29-2024 Episodic Other screening for suspected conditions (not mental disorders or infectious disease) (7 sources) Encounter for screening mammogram for malignant neoplasm of breast; Translations: [Encounter for screening for malignant neoplasm of cervix] Onset: 07-17-2021 Episodic Other upper respiratory disease (11 sources) Allergic rhinitis due to pollen; Translations: [Allergic rhinitis due to pollen] Onset: 03-30-2023 03-30-2023 Chronic Residual codes; unclassified (1 source) Family history of malignant neoplasm of breast; Translations: [FAMILY HX MALIG NEOPLASM OF BREAST] Onset: 11-07-2021 Episodic Residual codes; unclassified (1 source) Family history of malignant neoplasm of digestive organs; Translations: [FAM HX MALIG NEOPLASM DIGESTIV ORGN] Onset: 11-07-2021 Episodic Unclassified (3 sources) CONTACT W/AND (SUSP) EXPOS COVID-19; Translations: [CONTACT W/AND (SUSP) EXPOS COVID-19] Onset: 09-20-2021 Unclassified (2 sources) Chronic pain of right upper limb 07-05-2024 Past or Other Problems Problem Classification Problem Date Documented Da te Episodic/Chronic Administrative/social admission (4 sources) Encounter for pre-employment examination; Translations: [ENCOUNTER FOR PRE-EMPLOYMENT EXAM] Onset: 02-22-2021 Episodic Immunizations and screening for infectious disease (1 source) Encounter for screening for human papillomavirus (HPV); Translations: [ENC SCREENING HUMAN PAPILLOMAVIRUS] Onset: 07-18-2021 Episodic Other gastrointestinal disorders (11 sources) Irritable bowel syndrome with diarrhea; Translations: [Irritable bowel syndrome with diarrhea] Onset: 03-30-2023 Resolved: 11-03-2024 03-30-2023 Chronic Other non-traumatic joint disorders (15 sources) Chronic pain of right upper limb; Translations: [Pain in right shoulder] Onset: 04-27-2024 04-27-2024 Episodic Unclassified (1 source) CONTACT W/AND (SUSP) EXPOS COVID-19; Translations: [CONTACT W/AND (SUSP) EXPOS COVID-19] Onset: 09-16-2021 Results Test Name Value Interpretation Reference Range Facility No Panel Informationon 06-30 Doreen Wagner MA 07/05/2024 11:47 AM L Inj/Asp: R glenohumeral on 06/30/2024 4:27 PM Indications: diagnostic evaluation Details: 25 G needle, ultrasound-guided Medications: 6 mg betamethasone acetate-betamethasone sodium phosphate 6 (3-3) MG/ML Outcome: tolerated well, no immediate complications Consent was given by the patient. [employer] [facility] XR Hip - right 3 [facility] Result: X-rays, permanently saved to the patient's record, are reviewed AP pelvis, right hip taken in the [place] office saved to the permanent record shows moderate to early severe degenerative changes of the inferior medial wall. Her superior space is moderately worn. She does have some fairly prominent lateral acetabular spurs, right worse than left with reactivity with cam effect and impingement on the femoral head and neck. This is consistent with progressive arthritis with femoral acetabular impingement. There is no sign of tumor or infection seen. No sign of avascular necrosis. [employer] [facility] XR Hip - right 3 [facility] Study observation (narrative) [facility] No Panel Informationon 06-07 Remote Assistant Physician Referralon 024 Physician Referral [phone] 03 [id number] TIFF Normal [facility] US PELVIS AND TRANSVAGon US PELVIS AND [...] mass, a fibroid is favored. Normal [facility] MAMM SCREEN 3D PATTI CADon 11-05-2021 MAMM SCREEN 3D PATTI CAD Patient: TIM ROCA Exam Date: 11/05/2021 : 1975 Gender:F Ordering : DR FARHAN DUMONT . Admission #: [id number] Family : Order #: [id number] CLICK HERE TO VIEW EXAM RADIOLOGY REPORT PROCEDURE: MAMMOGRAM SCREENING 3D BILATERAL CAD COMPARISON: MAMM SCREEN PATTI W CAD, 10/10/2020. INDICATIONS: Screening mammography Calculator Name NCI Breast Cancer Risk Assessment Tool 5 Year Breast Cancer Risk 0.90% Lifetime Breast Cancer Risk 10.50% Personal Breast Cancer No Personal Ovarian Cancer No Treatments None Family Cancers Aunt-paternal with breast cancer at age 53; Grandfather-maternal with colon cancer at age 70. LOCATION: [facility] BREAST COMPOSITION: Scattered areas fibroglandular density. FINDINGS: [...] Taylor M.D. on 11/06/2021 at 10:44 Normal [facility] SYMPTOMATIC COVID-19 ANTIGEN on 09-16-2021 EUA Statement SEE BELOW Normal [facility] Comment on above: Result Comment: This [...] sooner. Performed By: #### C VDAGS #### [facility] [address] [place] [address] Dr. Yvette Dewey SARS-CoV-2 (COVID-19) RNA LEONIE+probe Ql (Unsp spec) Negative Normal NEGATIVE [facility] Comment on above: Performed By: #### C VDAGS #### [facility] [address] [place] [address] Dr. Yvette Dewey PAP ACOG PANEL 2: 30 to 65on 07-24-2021 . . Normal [facility] Comment on above: Result Comment: Perf ormed at: WB Performed By: #### [id number] #### [facility] [address] [place] [address] Dr. Yvette Dewey Age Gdln ACOG Testing 30-65 [facility] Comment on above: Performed By: #### [id number] #### [facility] [address] [place] [address] Dr. Yvette Dewey DIAGNOSIS: Comment Normal [facility] Comment on above: Result Comment: NEGA TIVE FOR INTRAEPITHELIAL LESION OR MALIGNANCY. Performed at: WB Performed By: #### [id number] #### [facility] [address] [place] [address] Dr. Yvette Dewey HPV Aptima Negative Normal Negative [facility] Comment on above: Result Comment: This nucleic acid amplification test detects fourteen high-risk HPV types (16,18,31,33,35,39,45,51,52,56,58,59,66,68) without differentiation. Performed at: =G Performed By: #### [id number] #### [facility] [address] [place] [address] Dr. Yvette Dewey Methodology: Comment Normal [facility] Comment on above: Result Comment: This liquid based ThinPrep(R) pap test was screened with the use of an image guided system. Performed at: WB Performed By: #### [id number] #### [facility] [address] [place] [address] Dr. Yvette Dewey Note: Comment Normal [facility] Comment on above: Result Comment: The Pap smear is a screening test designed to aid in the detection of premalignant and malignant conditions of the uterine cervix. It is not a diagnostic procedure and should not be used as the sole means of detecting cervical cancer. Both false-positive and false-negative reports do occur. . Performed at: WB Performed By: #### [id number] #### [facility] [address] [place] [address] Dr. Yvette Dewey Performed by: Comment Normal [facility] Comment on above: Result Comment: Ellen Carter, Supervisory Swimming Pool Maintenance (ASCP) Performed at: WB Performed By: #### [id number] #### [facility] [address] [place] [address] Dr. Yvette Dewey Specimen adequacy: Comment Normal [facility] Comment on above: Result Comment: Sati sfactory for evaluation. Endocervical and/or squamous metaplastic cells (endocervical component) are present. Performed at: WB Performed By: #### [id number] #### [facility] [address] [place] [address] Dr. Yvette Dewey QUANTIFERON TB GOLD PLUS (NO N-INC)on 02-25-2021 Comment Incubation performed. [facility] Comment on above: Performed By: #### Q NTTBG #### [facility] [address] [address] [address] Yvette Dewey Criteria Comment Normal [facility] Comment on above: Result Comment: The QuantiFERON-TB Gold Plus result is determined by subtracting the Nil value from either TB antigen (Ag) tube. The mitogen tube serves as a control for the test. Performed By: #### Q NTTBG #### [facility] [address] [address] [address] Yvette Dewey Mitogen Value >10.00 Normal [facility] Comment on above: Performed By: #### Q NTTBG #### [facility] [address] [place] [address] Dr. Yvette Dewey Nill Value 0.02 IU/mL Normal [facility] Comment on above: Performed By: #### Q NTTBG #### [facility] [address] [place] [address] Dr. Yvette Dewey Quantiferon Gold Plus Negative Normal Negative [facility] Comment on above: Result Comment: Chem iluminescence immunoassay methodology Performed By: #### Q NTTBG #### [facility] [address] [place] [address] Dr. Yvette Dewey TB1 Ag Value 0.28 IU/mL Normal [facility] Comment on above: Performed By: #### Q NTTBG #### [facility] [address] [place] [address] Dr. Yvette Dewey TB2 Ag Value 0.35 IU/mL Normal [facility] Comment on above: Performed By: #### Q NTTBG #### [facility] [address] [place] [address] Dr. Yvette Dewey HEPATITIS B SURFACE ANTIBODY , QUANTon 02-23-2021 Hepatitis B Surf AB Quant 19.4 mIU/mL Normal Immunity>9.9 [facility] Comment on above: Result Comment: Stat us of Immunity Anti-HBs Level Inconsistent with Immunity 0.0 - 9.9 Consistent with Immunity >9.9 Performed By: #### H EPBSRF #### [facility] [address] [place] [address] Dr. Yvette Dewey MMR IMMUNITYon 02-23-2021 Mumps Abs, IgG 38.3 AU/mL Normal Immune >10.9 [facility] Comment on above: Result Comment: Nega tive <9.0 Equivocal 9.0 - 10.9 Positive >10.9 A positive result generally indicates past exposure to Mumps virus or previous vaccination. Performed By: #### M MRIMMU #### [facility] [address] [place] [address] Dr. Yvette Dewey Rubella Antibodies, IgG 1.76 index Normal Immune >0.99 [facility] Comment on above: Result Comment: Non- immune <0.90 Equivocal 0.90 - 0.99 Immune >0.99 Performed By: #### M MRIMMU #### [facility] [address] [place] [address] Dr. Yvette Dewey Rubeola Ab, IgG 39.8 AU/mL Normal Immune >16.4 [facility] Comment on above: Result Comment: Nega tive <13.5 Equivocal 13.5 - 16.4 Positive >16.4 Presence of antibodies to Rubeola is presumptive evidence of immunity except when acute infection is suspected. Performed By: #### M MRIMMU #### [facility] [address] [place] [address] Dr. Yvette Dewey VARICELLA IGG ABon Varicella Zoster IgG >4000 Normal Immune >165 [facility] Comment on above: Result Comment: Nega tive <135 Equivocal 135 - 165 Positive >165 A positive result generally indicates exposure to the pathogen or administration of specific immunoglobulins, but it is not indication of active infection or stage of disease. Performed By: #### V ARCEL #### [facility] [address] [place] [address] Dr. Yvette Dewey Vital Signs Date Time Vital Sign Value Performing Clinician Faci lity 11-03-2024 14:33-0400 Body height 162.6 cm Terry Das MD Work Phone: [facility] 11-03-2024 14:33-0400 Body mass index (BMI) [Ratio] 35.02 kg/m2 Terry Das MD Work Phone: [facility] 11-03-2024 14:33-0400 Body temperature 97.11 [degF] Terry Das MD Work Phone: [facility] 11-03-2024 14:33-0400 Body weight 92.53 kg Terry Das MD Work Phone: [facility] 11-03-2024 14:33-0400 Diastolic blood pressure 78 mm[Hg] Terry Das MD Work Phone: [facility] 11-03-2024 14:33-0400 Heart rate 69 /min Terry Das MD Work Phone: [facility] 11-03-2024 14:33-0400 Respiratory rate 22 /min Terry Das MD Work Phone: [facility] 11-03-2024 14:33-0400 SaO2% (BldA) [Mass fraction] 98 % Terry Das MD Work Phone: [facility] 11-03-2024 14:33-0400 Systolic blood pressure 142 mm[Hg] Terry Das MD Work Phone: [facility] 09-29-2024 14:50-0400 Body mass index (BMI) [Ratio] 34.84 kg/m2 Moni Nataprawira DO Work Phone: [facility] 09-29-2024 14:50-0400 Body weight 92.08 kg Moni Nataprawira DO Work Phone: [facility] 09-29-2024 14:50-0400 Diastolic blood pressure 80 mm[Hg] Moni Nataprawira DO Work Phone: [facility] 09-29-2024 14:50-0400 Systolic blood pressure 124 mm[Hg] Moni Nataprawira DO Work Phone: [facility] 06-30-2024 15:30-0400 Body height 162.6 cm Jorge Wilhelm DO Work Phone: [facility] 06-30-2024 15:30-0400 Body mass index (BMI) [Ratio] 36.73 kg/m2 Jorge Wilhelm DO Work Phone: [facility] 06-30-2024 15:30-0400 Body weight 97.07 kg Jorge Wilhelm DO Work Phone: [facility] 06-16-2024 15:40-0400 Body height 165.1 cm Jorge Wilhelm DO Work Phone: [facility] 06-16-2024 15:40-0400 Body mass index (BMI) [Ratio] 36.28 kg/m2 Jorge Wilhelm DO Work Phone: [facility] 06-16-2024 15:40-0400 Body weight 98.88 kg Jorge Wilhelm DO Work Phone: [facility] 04-27-2024 08:49-0500 Body height 165.1 cm Terry Das MD Work Phone: [facility] 04-27-2024 08:49-0500 Body mass index (BMI) [Ratio] 36.28 kg/m2 Terry Das MD Work Phone: [facility] 04-27-2024 08:49-0500 Body temperature 97.11 [degF] Terry Das MD Work Phone: [facility] 04-27-2024 08:49-0500 Body weight 98.88 kg Terry Das MD Work Phone: [facility] 04-27-2024 08:49-0500 Diastolic blood pressure 76 mm[Hg] Terry Das MD Work Phone: [facility] 04-27-2024 08:49-0500 Heart rate 92 /min Terry Das MD Work Phone: [facility] 04-27-2024 08:49-0500 Respiratory rate 18 /min Terry Das MD Work Phone: [facility] 04-27-2024 08:49-0500 SaO2% (BldA) [Mass fraction] 99 % Terry Das MD Work Phone: [facility] 04-27-2024 08:49-0500 Systolic blood pressure 132 mm[Hg] Terry Das MD Work Phone: [facility] Encounters Encounter Date Encounter Type Care Provider Facility Start: 11-03-2024 End: 11-03-2024 Periodic preventive med est patient 40-64yrs Terry Das MD Work Phone: [facility] Comment on above: Annual physical exam (Primary Dx); Perimenopausal; Arthralgia, unspecified joint; Stress reaction Start: 11-03-2024 End: 11-03-2024 ambulatory TERRY DAS Not Available Start: 11-03-2024 End: 11-03-2024 Bamboo flowsheet Terry Das MD Work Phone: [facility] Start: 11-03-2024 End: 11-03-2024 Bamboo flowsheet Terry Das MD Work Phone: [facility] Start: 11-03-2024 End: 11-03-2024 Patient encounter procedure Terry Das MD Work Phone: [facility] Work Phone: Start: 09-29-2024 End: 09-29-2024 Patient encounter status Moni Wayne DO Work Phone: [facility] Work Phone: Start: 09-29-2024 End: 09-29-2024 Periodic preventive med est patient 40-64yrs Moni Wayne DO Work Phone: [facility] Comment on above: Encounter for gyneco logical examination without abnormal finding (Primary Dx); Irregular menstrual cycle; Arthralgia, unspecified joint; Perimenopause; Other screening mammogram; Family planning Start: 09-29-2024 End: 09-29-2024 ambulatory MONI WAYNE Not Available Start: 06-30-2024 End: 06-30-2024 Patient encounter procedure Jorge Wilhelm DO Work Phone: [facility] Comment on above: Chronic right should er pain (Primary Dx) Start: 06-30-2024 End: 06-30-2024 ambulatory JORGE WILHELM Not Available Start: 06-30-2024 End: 06-30-2024 ambulatory JORGE WILHELM Not Available Start: 06-16-2024 End: 06-16-2024 Patient encounter procedure Jorge Wilhelm DO Work Phone: [facility] Comment on above: Right hip pain (Prim corbin Dx) Start: 06-16-2024 End: 06-16-2024 ambulatory JORGE WILHELM Not Available Start: 06-16-2024 End: 06-16-2024 ambulatory JORGE WILHELM Not Available Start: 04-27-2024 End: 04-27-2024 Office outpatient visit 15 minutes Terry Das MD Work Phone: [facility] Comment on above: Chronic right should er pain (Primary Dx) Start: 04-27-2024 End: 04-27-2024 ambulatory TERRY DAS Not Available Start: 04-28-2023 ambulatory Jorge PARRA Facility :[facility] Start: 03-31-2023 ambulatory Jorge PARRA Facility:[facility] Start: 01-17-2022 End: 01-18-[address] FERCHO DUARTE Facility:[facility] Start: 11-05-2021 End: 11-06-[address] FARHAN DUMONT Facility:[facility] Start: 09-16-2021 End: 09-17-2021 ambulatory TIP HENRY Facility:[facility] Start: 07-17-2021 End: 07-17-[address] FARHAN DUMONT Facility:[facility] Start: 02-22-2021 End: 02-23-[address] MARTIN ROMAN Facility:[facility] Procedures Date Procedure Procedure Detail Performing Clinician Start: 06-30-2024 Arthrocentesis aspir &/inj major jt/bursa w/us Jorge Wilhelm DO Work Phone: Start: 06-30-2024 Radex shoulder compl ete minimum 2 views Jorge Wilhelm DO Work Phone: Start: 06-16-2024 Radex hip unilateral with pelvis 2-3 views Jorge Wilhelm DO Work Phone: Start: 12-16-2023 Mammography Terry meeks MD Work Phone: Start: 06-08-2023 Microscopic observat ion [Identifier] in Cervix by Cyto stain Moni Nataprawira DO Work Phone: Start: 06-08-2023 THINPREP TIS PAP AND HPV MRNA E6/E7 REFLEX HPV 16,18/45 (33026) Yuri Walsh DO Work Phone: Plan of Treatment Date Care Activity Detail Author Start: 06-07-2026 Screening for malignant neoplasm of cervix [facility] Start: 10-03-2025 End: 10-03-2025 Patient encounter procedure [facility] Start: 08-31-2025 Screening for malignant neoplasm of colon [facility] Start: 12-16-2024 End: 11-30-2025 DBT Breast - bilateral screening Bilateral screening mammogram with tomosynthesis Imaging Routine Other screening mammogram Expected: 12/16/2024, Expires: 11/30/2025 [facility] Work Phone: Comment on above: Expected: 12/16/2024, Expires: Start: 12-15-2024 Screening for malignant neoplasm of breast Mammogram [facility] Start: 12-06-2024 End: 12-06-2024 Patient encounter procedure 12/06/2024 3:15 PM EDT Office Visit [facility] [address] [place] [id number] Terry Das MD [address] [place] [id number] [facility] Start: 11-14-2024 Influenza vaccination Influenza Vaccine (#1) [facility] Start: 11-03-2024 End: 11-03-2024 Patient encounter procedure 11/03/2024 2:30 PM EDT Office Visit [facility] [address] [place] [address] Terry Das MD [address] [place] [address] Arrived [facility] Comment on above: Arrived Start: 11-03-2024 End: 11-03-2025 CBC W Auto Differential panel - Blood CBC and differential Lab Routine Annual physical exam Expected: 11/03/2024 (Approximate), Expires: 11/03/2025 [facility] Comment on above: Expected: 11/03/2024 (Approximate), Expi res: 11/03/2025 Start: 11-03-2024 End: 11-03-2025 Comprehensive metabolic 2000 panel - Serum or Plasma Comprehensive metabolic panel Lab Routine Annual physical exam Expected: 11/03/2024 (Approximate), Expires: 11/03/2025 [facility] Comment on above: Expected: 11/03/2024 (Approximate), Expi res: 11/03/2025 Start: 11-03-2024 End: 11-03-2025 Erythrocyte sedimentation rate Sedimentation rate, automated Lab Routine Arthralgia, unspecified joint Expected: 11/03/2024 (Approximate), Expires: 11/03/2025 [facility] Comment on above: Expected: 11/03/2024 (Approximate), Expi res: 11/03/2025 Start: 11-03-2024 End: 11-03-2025 Estradiol Estradiol Lab Routine Perimenopausal Expected: 11/03/2024 (Approximate), Expires: 11/03/2025 [facility] Comment on above: Expected: 11/03/2024 (Approximate), Expi res: 11/03/2025 Start: 11-03-2024 End: 11-03-2025 Estrogens, total Estrogens, total Lab Routine Perimenopausal Expected: 11/03/2024 (Approximate), Expires: 11/03/2025 [facility] Comment on above: Expected: 11/03/2024 (Approximate), Expi res: 11/03/2025 Start: 11-03-2024 End: 11-03-2025 FSH FSH Lab Routine Perimenopausal Expected: 11/03/2024 (Approximate), Expires: 11/03/2025 [facility] Comment on above: Expected: 11/03/2024 (Approximate), Expi res: 11/03/2025 Start: 11-03-2024 End: 11-03-2025 Hemoglobin A1c/Hemoglobin.total in Blood Hemoglobin A1c Lab Routine Annual physical exam Expected: 11/03/2024 (Approximate), Expires: 11/03/2025 [facility] Comment on above: Expected: 11/03/2024 (Approximate), Expi res: 11/03/2025 Start: 11-03-2024 End: 11-03-2025 Lipid 1996 panel - Serum or Plasma Lipid panel Lab Routine Annual physical exam Expected: 11/03/2024 (Approximate), Expires: 11/03/2025 [facility] Comment on above: Expected: 11/03/2024 (Approximate), Expi res: 11/03/2025 Start: 11-03-2024 End: 11-03-2025 Luteinizing hormone Luteinizing hormone Lab Routine Perimenopausal Expected: 11/03/2024 (Approximate), Expires: 11/03/2025 [facility] Comment on above: Expected: 11/03/2024 (Approximate), Expi res: 11/03/2025 Start: 11-03-2024 End: 11-03-2025 Nuclear Ab [Titer] in Serum by Immunofluorescence COLBY Lab Routine Arthralgia, unspecified joint Expected: 11/03/2024 (Approximate), Expires: 11/03/2025 [facility] Comment on above: Expected: 11/03/2024 (Approximate), Expi res: 11/03/2025 Start: 11-03-2024 End: 11-03-2025 Progesterone Progesterone Lab Routine Perimenopausal Expected: 11/03/2024 (Approximate), Expires: 11/03/2025 [facility] Work Phone: Comment on above: Expected: 11/03/2024 (Approximate), Expi res: 11/03/2025 Start: 11-03-2024 End: 11-03-2025 Rheumatoid factor [Units/volume] in Serum or Plasma Rheumatoid factor Lab Routine Arthralgia, unspecified joint Expected: 11/03/2024 (Approximate), Expires: 11/03/2025 [facility] Comment on above: Expected: 11/03/2024 (Approximate), Expi res: 11/03/2025 Start: 11-03-2024 End: 11-03-2025 Thyrotropin [Units/volume] in Serum or Plasma TSH Lab Routine Annual physical exam Expected: 11/03/2024 (Approximate), Expires: 11/03/2025 [facility] Comment on above: Expected: 11/03/2024 (Approximate), Expi res: 11/03/2025 Start: 06-30-2024 End: 06-30-2024 Patient encounter procedure 06/30/2024 3:30 PM EDT Office Visit [facility] [address] [address] Jorge Wilhelm DO [address] [place] [address] [facility] Start: 04-27-2024 End: 04-27-2025 XR Shoulder - right 2 Views XR shoulder 2+ views right Imaging Routine Chronic right shoulder pain Expected: 04/27/2024, Expires: 04/27/2025 [facility] Work Phone: Comment on above: Expected: 04/27/2024, Expires: Start: 10-10-2005 Screening for malignant neoplasm of cervix [facility] Start: 10-10-1996 Screening for malignant neoplasm of cervix Pap Smear [facility] Start: 1975 Screening for malignant neoplasm of colon [facility] XR Shoulder - right 2 Views XR s houlder 2+ views right Imaging Routine Chronic right shoulder pain 06/30/2024 11:[address] [facility] Work Phone: Immunizations Immunization Date Immunization Notes Care Provider Fa cili 01-02-2024 influenza virus vaccine, unspecified formulation Moni Wayne DO Work Phone: [facility] Payers Date Payer Category Payer Blue Cross Blue Shield BCBS [id number] 2024 Unknown [id number] 2024 Private Health Insurance [employer] [id number] 2024 Unknown [id number] 2023 Unknown [id number] 2019 Unknown [id number] 1975 Unknown [id number] [id number]. 593 1975 Unknown [id number] 2.16.840.1.149964.3.579.2. 593 1975 Unknown [id number] 2.16.840.1.454022.3.579.2. 593 1975 Unknown [id number] 2.16.840.1.577554.3.579.2. 727 1975 Unknown [id number] 2.16.840.1.621171.3.579.2. 1259 1975 Unknown [id number] 2.16.840.1.657818.3.579.2. 9 1975 Unknown [id number] 2.16.840.1.527022.3.579.2. 1258 1975 Unknown [id number] 2.16.840.1.920744.3.579.2. 1258 1975 Unknown [id number] 2.16.840.1.745201.3.579.2. 1258 1975 Unknown [id number] 2.16.840.1.005158.3.579.2. 1258 1975 Unknown [id number] 2.16.840.1.889656.3.579.2. 1259 1959 Self-pay Unknown [id number] [id number]. 593 Unknown [id number] [id number]. 593 Social History Date Type Detail Facility Start: 03-30-2023 Tobacco smoking status AZIS Never sm oked tobacco [facility] Start: 03-30-2023 Tobacco use and exposure Smoke less tobacco non-user [facility] Start: 04-27-2024 End: 11-03-2024 Alcoholic beverage intake Current drinker of alcohol (finding) [facility] Start: 03-29-2023 End: 11-03-2024 History of Social function [facility] Start: 03-29-2023 End: 11-03-2024 Humiliation, Afraid, Rape, and Kick questionnaire [HARK] [facility] Within the last year , have you been afraid of your partner or ex-partner? No [facility] How often do you att end confucianist or mandaeism services? Patient declined [facility] Are you now , , , , never or living with a partner? [facility] How often to you hav e a drink containing alcohol? Monthly or less [facility] How many standard dr inks containing alcohol do you have on a typical day? 1 or 2 [facility] How often do you hav e 6 or more drinks on 1 occasion? Never [facility] Do you feel stress - tense, restless, nervous, or anxious, or unable to sleep at night because your mind is troubled all the time - these days [OSQ] Only a little [facility] (I/We) worried wheth er (my/our) food would run out before (I/we) got money to buy more. Never true [facility] Start: 06-04-2023 Alcohol Comment Caffeine intake: non e [facility] Start: 1975 Sex assigned at Not on file [facility] Start: 03-29-2023 Gender identity Identifies as female gender (finding) [facility] Start: 06-30-2024 Alcohol Comment maybe 2-3 per month [facility] History of Present illness Narrative 11-03-2024 Terry Das MD - 11/03/2024 3:18 PM Olga Das MD - 11/03/2024 3:17 PM BRENDANjoel Das MD - 11/03/2024 2:30 PM EDT Note Date & Type Note Facility 11-03-2024 History of Presen t illness Narrative Associated Problem(s): Stress reaction Severe symptoms and start celexa. Associated Problem(s): Annual physical exam Due for labs. Discussed proper diet and regular aerobic exercise. Need aerobic exercise 5-6 days a week for 30 minutes at a time. Smaller portions and limit total calories. Cologuard normal August 2022. Tetanus every 10 years. Advised not to smoke. Images from the original note were not included. Subjective Patient ID: Tim Roca is a 49 y.o. female who presents for Annual Exam (wellness), Hip Pain, and Shoulder Pain. Presents for wellness visit. Weight down 14 pounds in past year. Increased activity and exercising several days a week. Tries to watch diet and eat healthy. Increased fruits and vegetables. Smaller portions and limits snacking. Tries to limit total daily calories. Due for labs. C/o severe stress over past few months. Caring for mom who is in poor health. At times feels down. Most of time feels stressed out and overwhelmed. Nervous and worry all the time. Frequent mood swings. Never on medication. Concerned of hormone changes. Periods irregular. Increased joint pain. Feels like mood swings may be hormone related. Review of Systems Respiratory: Negative for cough, shortness of breath and wheezing. Cardiovascular: Negative for chest pain and palpitations. Gastrointestinal: Negative for abdominal pain, diarrhea, nausea and vomiting. Genitourinary: Negative for dysuria. Objective Physical Exam Constitutional: General: She is not in acute distress. Appearance: Normal appearance. HENT: Head: Normocephalic. Right Ear: Tympanic membrane normal. Left Ear: Tympanic membrane normal. Eyes: Extraocular Movements: Extraocular movements intact. Pupils: Pupils are equal, round, and reactive to light. Cardiovascular: Rate and Rhythm: Normal rate and regular rhythm. Heart sounds: No murmur heard. No friction rub. No gallop. Pulmonary: Effort: Pulmonary effort is normal. Breath sounds: Normal breath sounds. No wheezing, rhonchi or rales. Abdominal: General: Bowel sounds are normal. There is no distension. Palpations: Abdomen is soft. Tenderness: There is no abdominal tenderness. There is no guarding or rebound. Musculoskeletal: General: No swelling or tenderness. Cervical back: Neck supple. Right lower leg: No edema. Left lower leg: No edema. Skin: Findings: No erythema or rash. Neurological: General: No focal deficit present. Mental Status: She is alert and oriented to person, place, and time. Cranial Nerves: No cranial nerve deficit. Motor: No weakness. Gait: Gait normal. Assessment/Plan Problem List Items Addressed This Visit Annual physical exam - Primary Due for labs. Discussed proper diet and regular aerobic exercise. Need aerobic exercise 5-6 days a week for 30 minutes at a time. Smaller portions and limit total calories. Cologuard normal August 2022. Tetanus every 10 years. Advised not to smoke. Relevant Orders Hemoglobin A1c CBC and differential Comprehensive metabolic panel Lipid panel TSH Perimenopausal Relevant Orders Progesterone Estrogens, total FSH Luteinizing hormone Estradiol Arthralgia Relevant Orders Sedimentation rate, automated COLBY Rheumatoid factor Stress reaction Severe symptoms and start celexa. Relevant Medications citalopram (CeleXA) 10 MG tablet documented in this encounter [facility] History of Present illness Narrative 09-29-2024 Moni Edith Wayne DO - 09/29/2024 2:45 PM EDT Note Date & Type Note Facility 09-29-2024 History of Presen t illness Narrative Images from the original note were not included. Moni Wayne DO Obstetrics and Gynecology Name: Tim Roca Date/Time of Service:09/29/2024 3:22 PM :1975 Age: 48 y.o. Subjective Tim Roca is a 48 y.o. female who is here for a routine exam. Gynecologic Exam (Patient here for a yearly. Patient reports that her periods are Irregular, she states that she can go months without a period then have one. She had a period on 06/20/24 then started again on 09/17/24. Patient reports joint pain and a foggy feeling. Would like to discuss. Future mammogram order sent to the [facility]. Never had colonoscopy, plans to f/up with PCP. Does not use anything for birthcontrol, sexually active with women.) Control Contraception: none. LMP: No LMP recorded. Last Mammogram No results found for this or any previous visit. Current Outpatient Medications on File Prior to Visit Medication Sig Dispense Refill fexofenadine (Flora) 180 MG tablet Take 180 mg by mouth Daily fluticasone (Flonase) 50 MCG/ACT nasal spray Administer 2 sprays into each nostril Daily Shake gently. Before first use, prime pump. After use, clean tip and replace cap. levalbuterol (Xopenex) 45 MCG/ACT inhaler INHALE 2 PUFFS EVERY 6 HOURS IF NEEDED FOR WHEEZING. 15 g 11 meloxicam (Mobic) 15 MG tablet Take 1 tablet (15 mg) by mouth Daily 30 tablet 11 metoprolol succinate XL (Toprol-XL) 25 MG 24 hr tablet TAKE 1/2 TABLET BY MOUTH DAILY 45 tablet 3 No current facility-administered medications on file prior to visit. Past Medical History: Diagnosis Date AC (acromioclavicular) joint bone spurs Deviated nasal septum Enlarged uterus Menorrhagia Paroxysmal supraventricular tachycardia (HCC) Seasonal allergic rhinitis due to pollen Tear of meniscus of knee Past Surgical History: Procedure Laterality Date CHOLECYSTECTOMY KNEE SURGERY Right NASAL SEPTUM SURGERY Family History Problem Relation Name Age of Onset Hyperlipidemia Mother Amy Hypertension Mother Amy Cancer Mother Amy Osteoporosis Mother Amy Rheumatologic disease Mother Amy Hyperlipidemia Maternal Grandmother Katherine Heart disease Maternal Grandmother Katherine Diabetes Maternal Grandmother Katherine Hypertension Maternal Grandmother Katherine Hyperlipidemia Maternal Grandfather Circle Heart disease Maternal Grandfather Circle Diabetes Maternal Grandfather Circle Cancer Maternal Grandfather Circle Hypertension Maternal Grandfather Circle Hyperlipidemia Paternal Grandmother Heart disease Paternal Grandmother Hypertension Paternal Grandmother Hyperlipidemia Paternal Grandfather Heart disease Paternal Grandfather Hypertension Paternal Grandfather Social History Tobacco Use Smoking status: Never Smokeless tobacco: Never Substance Use Topics Alcohol use: Yes Comment: maybe 2-3 per month Drug use: Never OB History No obstetric history on file. No Known Allergies Review of Systems Constitutional: Negative. Respiratory: Negative. Cardiovascular: Negative. Gastrointestinal: Negative. Musculoskeletal: Negative. Skin: Negative. Neurological: Negative. Endocrine: Negative. Objective BP 124/80 Wt 203 lb BMI 34.84 kg/m Body mass index is 34.84 kg/m . Physical Exam Genitourinary: Urethral meatus normal. No lesions in the vagina. Right Labia: No lesions. Left Labia: No lesions. No vaginal discharge. Right Adnexa: not tender and no mass present. Left Adnexa: not tender and no mass present. No cervical lesion. Uterus is not tender. Uterus is anteverted. Urethral hypermobility present. No urethral stress urinary incontinence with cough stress test present. Bladder is not tender. Breasts: Right: No mass, nipple discharge, skin change or tenderness. Left: No mass, nipple discharge, skin change or tenderness. HENT: Head: Normocephalic and atraumatic. Mouth/Throat: Mouth: Mucous membranes are moist. Cardiovascular: Rate and Rhythm: Normal rate and regular rhythm. Pulmonary: Effort: Pulmonary effort is normal. Breath sounds: Normal breath sounds. Abdominal: General: Bowel sounds are normal. Palpations: Abdomen is soft. Musculoskeletal: General: No tenderness. Cervical back: Neck supple. Neurological: Mental Status: She is alert and oriented to person, place, and time. Skin: General: Skin is warm and dry. Psychiatric: Mood and Affect: Mood normal. Vitals and nursing note reviewed. Assessment/Plan 1. Encounter for gynecological examination without abnormal finding (Primary) Breast and pelvic exam performed. Discussed findings. Patient to contact the office with any changes to her gynecological condition. 2. Irregular menstrual cycle Discussed perimenopausal period. Patient voiced understanding. Patient to contact the office with any concerns/questions 3. Arthralgia, unspecified joint To discuss with Primary care provider to other possible etiology. Discussed increasing physical exercises 4. Perimenopause Treatment/management options discussed: continue observation vs. HRT treatment 5. Other screening mammogram Mammogram order sent and given to patient. Patient to schedule appointment - Bilateral screening mammogram with tomosynthesis; Future 6. Family planning Declined any interest in prescribed contraception. Partner is same sex ICD-10-CM 1. Encounter for gynecological examination without abnormal finding Z01.419 2. Irregular menstrual cycle N92.6 3. Arthralgia, unspecified joint M25.50 4. Perimenopause N95.1 5. Other screening mammogram Z12.31 Bilateral screening mammogram with tomosynthesis 6. Family planning Z30.09 Follow up in about 1 year (around 09/29/2025) for Yearly. Moni Wayne DO 09/29/2024 3:22 PM documented in this encounter [facility] History of Present illness Narrative 06-30-2024 Doreen Wagner MA - 06/30/2024 3:30 PM EDTMaggie Wyatt - 06/30/2024 3:30 PM EDT Note Date & Type Note Facility 06-30-2024 History of Presen t illness Narrative Associated Order(s): L Inj/Asp: R glenohumeral Post-Procedure Diagnose(s): Chronic right shoulder pain L Inj/Asp: R glenohumeral on 06/30/2024 4:27 PM Indications: diagnostic evaluation Details: 25 G needle, ultrasound-guided Medications: 6 mg betamethasone acetate-betamethasone sodium phosphate 6 (3-3) MG/ML Outcome: tolerated well, no immediate complications Consent was given by the patient. Images from the original note were not included. Tim Roca is a 48 y.o. female presents with chief complaint of right shoulder pain and stiffness. 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 It hurts with overhead and rotatory motion. She does get occasional clicking. Care was assisted with physician financial legal assistant, Edwin Lerner, today. SUBJECTIVE: MEDICATIONS: Current Outpatient Medications Medication Instructions fexofenadine (FLORA) 180 mg, Daily fluticasone (Flonase) 50 MCG/ACT nasal spray 2 sprays, Daily levalbuterol (Xopenex) 45 MCG/ACT inhaler INHALE 2 PUFFS EVERY 6 HOURS IF NEEDED FOR WHEEZING. meloxicam (MOBIC) 15 mg, Oral, Daily metoprolol succinate XL (TOPROL-XL) 12.5 mg, Oral, Daily ALLERGIES: No Known Allergies SURGICAL HISTORY: Past Surgical History: Procedure Laterality Date CHOLECYSTECTOMY KNEE SURGERY Right NASAL SEPTUM SURGERY FAMILY HISTORY: Family History Problem Relation Name Age of Onset Hyperlipidemia Mother Amy Hypertension Mother Amy Cancer Mother Amy Osteoporosis Mother Amy Rheumatologic disease Mother Amy Hyperlipidemia Maternal Grandmother Katherine Heart disease Maternal Grandmother Katherine Diabetes Maternal Grandmother Katherine Hypertension Maternal Grandmother Katherine Hyperlipidemia Maternal Grandfather Circle Heart disease Maternal Grandfather Circle Diabetes Maternal Grandfather Circle Cancer Maternal Grandfather Circle Hypertension Maternal Grandfather Circle Hyperlipidemia Paternal Grandmother Heart disease Paternal Grandmother Hypertension Paternal Grandmother Hyperlipidemia Paternal Grandfather Heart disease Paternal Grandfather Hypertension Paternal Grandfather SOCIAL HISTORY: Social History Tobacco Use Smoking status: Never Smokeless tobacco: Never Substance Use Topics Alcohol use: Yes Comment: maybe 2-3 per month Drug use: Never Depression: Not on file REVIEW OF SYMPTOMS: The review of systems, history and current medications list are all reviewed today. OBJECTIVE: Visit Vitals Ht 5' 4 Wt 214 lb BMI 36.73 kg/m OB Status Postmenopausal Smoking Status Never BSA 2.09 m Physical Exam On physical exam, she is alert and oriented. Vital signs are stable. The shoulder is clinically reduced. There is a moderate amount of hypertonicity of the deltoid. There is tenderness in the subacromial space and rotator cuff insertional area. Impingement tests are positive. Cross arm is negative. Biceps exam is stable. There is no adhesive or instability component. X-rays, permanently saved to the patient's record, are reviewed show a type II, borderline III acromion with lateral downsloping. The glenohumeral joint is spared. Calcific tendinopathy is present with small punctate lesion as well as a couple of small ossicles just off the greater tuberosity from some intermittent chronic inflammation. There is no fracture, dislocation, tumor or infection seen. ASSESSMENT AND PLAN: Assessment/Plan Right shoulder impingement syndrome with questionable partial rotator cuff tear; calcific tendinopathy; hypertrophic A/C joint. The nature of the findings were discussed at length. We discussed the role of MRI and arthroscopy if not getting better. Ice, Tylenol and topicals were all reviewed. Home exercise program was discussed. With consent from the patient today, limited ultrasound is performed identifying the rotator cuff and biceps tendon. These are intact without full thickness tear. Needle localization with image capture is performed with 1 cc of cortisone (3 mg of Betamethasone sodium phosphate with 3 mg of Betamethasone acetate) and 1 cc of 1% plain Lidocaine was injected under sterile lateral approach. She tolerated the injection well. She is aware that she can have up to three injections per year. Ultimately again if she is having continued pain, problems or night disruption, the role of MRI is warranted. She voices verbal understanding. She is discharged in stable condition. Numerous questions were answered. Follow up p.r.n.. The patient was seen and examined. From the time of check in, nurse triage, vital signs, x-ray, x-ray interpretation, review of systems, comprehensive history and physical exam as well as setting up treatment plan and further management took 35 minutes. Cosigned by Jorge Wilhelm DO at 07/05/2024 11:45 AM EDT documented in this encounter [facility] History of Present illness Narrative 06-16-2024 Maggie Wyatt - 06/16/2024 3:30 PM EDT Note Date & Type Note Facility 06-16-2024 History of Presen t illness Narrative Images from the original note were not included. Tim Roca is a 48 y.o. female presents with chief complaint of right hip pain and stiffness. 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 She has been very busy helping to care with her mom. For the last six to seven weeks, she has been having pain along the hip and thigh. 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 There is no falls or trauma reported. She has noticed over the last several months increasing stiffness of the hip and thigh, difficulty putting on her socks and shoes. She will get occasional twinge of the left side. She has tried some Advil and Aleve but does have to watch for GI upset. No significant back symptoms. She does state with the new job change, there is a possibility that she has slowed down with her activity level a little bit more. Mom does have a history of arthritis and has had prior hip replacements. SUBJECTIVE: MEDICATIONS: Current Outpatient Medications Medication Instructions fexofenadine (FLORA) 180 mg, Daily fluticasone (Flonase) 50 MCG/ACT nasal spray 2 sprays, Daily levalbuterol (Xopenex) 45 MCG/ACT inhaler INHALE 2 PUFFS EVERY 6 HOURS IF NEEDED FOR WHEEZING. meloxicam (MOBIC) 15 mg, Oral, Daily metoprolol succinate XL (TOPROL-XL) 12.5 mg, Oral, Daily ALLERGIES: No Known Allergies SURGICAL HISTORY: Past Surgical History: Procedure Laterality Date CHOLECYSTECTOMY KNEE SURGERY Right NASAL SEPTUM SURGERY FAMILY HISTORY: Family History Problem Relation Name Age of Onset Hyperlipidemia Mother Hypertension Mother Hyperlipidemia Maternal Grandmother Heart disease Maternal Grandmother Diabetes Maternal Grandmother Hypertension Maternal Grandmother Hyperlipidemia Maternal Grandfather Heart disease Maternal Grandfather Diabetes Maternal Grandfather Cancer Maternal Grandfather Hypertension Maternal Grandfather Hyperlipidemia Paternal Grandmother Heart disease Paternal Grandmother Hypertension Paternal Grandmother Hyperlipidemia Paternal Grandfather Heart disease Paternal Grandfather Hypertension Paternal Grandfather SOCIAL HISTORY: Social History Tobacco Use Smoking status: Never Smokeless tobacco: Never Substance Use Topics Alcohol use: Yes Comment: Caffeine intake: none Depression: Not on file REVIEW OF SYMPTOMS: The review of systems, history and current medications list are all reviewed today. OBJECTIVE: Visit Vitals Ht 5' 5 Wt 218 lb BMI 36.28 kg/m OB Status Postmenopausal Smoking Status Never BSA 2.13 m Physical Exam On physical exam, she is alert and oriented. Vital signs are stable. The right hip has moderate stiffness. The left hip has mild stiffness. There are signs of abduction impingement of the hips, right worse than left. Her pain is more mild today with more discomfort. Her active range of motion is moderately restricted with rotation, right worse than left. Her bench and straight leg raise testing is negative. The calf is supple and she is neurovascularly intact distally. She is able to bear full weight. X-rays, permanently saved to the patient's record, are reviewed AP pelvis, right hip taken in the [place] office saved to the permanent record shows moderate to early severe degenerative changes of the inferior medial wall. Her superior space is moderately worn. She does have some fairly prominent lateral acetabular spurs, right worse than left with reactivity with cam effect and impingement on the femoral head and neck. This is consistent with progressive arthritis with femoral acetabular impingement. There is no sign of tumor or infection seen. No sign of avascular necrosis. ASSESSMENT AND PLAN: Assessment/Plan Bilateral hip osteoarthritis, right worse than left. Antalgic gait. Stiffness. Femoral acetabular impingement with lateral spurring. The nature of the findings were discussed at length. Unfortunately her arthritic change is too far past the ability of scope with osteotomy or any acetabular preservation methods. We discussed the role of total hip replacement. The perioperative course was briefly reviewed. 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 Meloxicam was prescribed 15 mg one p.o. daily with refills, taking with food, watching for GI upset. Any issues will be reported. We discussed the role of hip arthrogram cortisone injection. She is aware she can up to three per year. She would like to think about this. The pros, cons, risks, benefits and reasonable expectations of this were reviewed. The perioperative course under local anesthesia, taking it easy that day were all discussed. She is also having shoulder and lesser degree knee pain. We will set up an appointment for the right shoulder, new problem, in the near future for x-ray and exam. She voices verbal understanding. She is discharged in stable condition. Numerous questions were answered. The patient was seen and examined. From the time of check in, nurse triage, vital signs, x-ray, x-ray interpretation, review of systems, comprehensive history and physical exam as well as setting up treatment plan and further management took 50 minutes. Cosigned by Jorge Wilhelm DO at 06/21/2024 12:10 PM EDT documented in this encounter [facility] History of Present illness Narrative 04-27-2024 Terry Das MD - 04/27/2024 9:24 AM Henna Das MD - 04/27/2024 8:45 AM EST Note Date & Type Note Facility 04-27-2024 History of Presen t illness Narrative Associated Problem(s): Chronic right shoulder pain Pain for months and positive empty can sign suggesting impingement. Check x-ray to assess for arthritis changes. Treat with prednisone. Handout with ROM exercises. If no improvement will need ortho evaluation. Images from the original note were not included. Subjective Patient ID: Tim Roca is a 48 y.o. female who presents for Shoulder Pain (Right shoulder pain). C/o right shoulder pain for several months. No specific fall, injury, or trauma. Pain deep in shoulder and in top shoulder. Full ROM but pain with movement. Not constant pain and some days worse than other. Mild weakness in arm but still using. Pain at night and in am. Frequent popping in shoulder. Patient right handed. Constant pain and getting worse, starting to affect activity. Review of Systems Respiratory: Negative for cough, shortness of breath and wheezing. Cardiovascular: Negative for chest pain and palpitations. Gastrointestinal: Negative for abdominal pain, diarrhea, nausea and vomiting. Genitourinary: Negative for dysuria. Objective Physical Exam Constitutional: General: She is not in acute distress. Appearance: Normal appearance. HENT: Head: Normocephalic. Right Ear: Tympanic membrane normal. Left Ear: Tympanic membrane normal. Eyes: Extraocular Movements: Extraocular movements intact. Pupils: Pupils are equal, round, and reactive to light. Cardiovascular: Rate and Rhythm: Normal rate and regular rhythm. Heart sounds: No murmur heard. No friction rub. No gallop. Pulmonary: Effort: Pulmonary effort is normal. Breath sounds: Normal breath sounds. No wheezing, rhonchi or rales. Abdominal: General: Bowel sounds are normal. There is no distension. Palpations: Abdomen is soft. Tenderness: There is no abdominal tenderness. There is no guarding or rebound. Musculoskeletal: Cervical back: Neck supple. Right lower leg: No edema. Left lower leg: No edema. Comments: Right shoulder: Mild tenderness deep in shoulder. Full ROM and mild pain with movement. Strength rotator cuff 5/5. Positive empty can sign. Neurological: Mental Status: She is alert. Assessment/Plan Problem List Items Addressed This Visit Chronic right shoulder pain - Primary Pain for months and positive empty can sign suggesting impingement. Check x-ray to assess for arthritis changes. Treat with prednisone. Handout with ROM exercises. If no improvement will need ortho evaluation. Relevant Medications predniSONE (Deltasone) 50 MG tablet Other Relevant Orders XR shoulder 2+ views right documented in this encounter [facility] Evaluation note Note Date & Type Note Facility Evaluation note Diagnosis Irritable bowel syndrome with diarrhea- Primary Irritable bowel syndrome Chronic superficial gastritis without bleeding Paroxysmal SVT (supraventricular tachycardia) ([facility] Encounter for female family planning counseling Chronic right shoulder pain- Primary Pain in joint, shoulder region documented in this encounter [facility] Evaluation note Note Date & Type Note Facility Evaluation note Diagnosis Irritable bowel syndrome with diarrhea- Primary Irritable bowel syndrome Chronic superficial gastritis without bleeding Paroxysmal SVT (supraventricular tachycardia) ([facility] Encounter for female family planning counseling Chronic right shoulder pain- Primary Pain in joint, shoulder region Right hip pain- Primary Pain in joint, pelvic region and thigh documented in this encounter [facility] Healthcare Evaluation note Note Date & Type Note Facility Evaluation note Diagnosis Irritable bowel syndrome with diarrhea- Primary Irritable bowel syndrome Chronic superficial gastritis without bleeding Paroxysmal SVT (supraventricular tachycardia) ([facility]) Encounter for female family planning counseling Chronic right shoulder pain- Primary Pain in joint, shoulder region Chronic right shoulder pain- Primary Pain in joint, shoulder region documented in this encounter [facility] Evaluation note Note Date & Type Note Facility Evaluation note Diagnosis Irritable bowel syndrome with diarrhea- Primary Irritable bowel syndrome Chronic superficial gastritis without bleeding Paroxysmal SVT (supraventricular tachycardia) ([facility]) Encounter for female family planning counseling Chronic right shoulder pain- Primary Pain in joint, shoulder region Encounter for gynecological examination without abnormal finding- Primary Irregular menstrual cycle Arthralgia, unspecified joint Perimenopause Symptomatic menopausal or female climacteric states Other screening mammogram Family planning Other general counseling and advice for contraceptive management documented in this encounter [facility] Evaluation note Note Date & Type Note Facility Evaluation note Diagnosis Chronic right shoulder pain- Primary Pain in joint, shoulder region Annual physical exam- Primary Routine general medical examination at a health care facility Perimenopausal Symptomatic menopausal or female climacteric states Arthralgia, unspecified joint Stress reaction Unspecified acute reaction to stress documented in this encounter [facility] Summary Purpose Family History No Family History Records FoundNo Family History Records FoundNo Family History Records Found Advance Directives No Advanced Directives Records FoundNo Advanced Directives Records FoundNo Advanced Directives Records Found Additional Source Comments INFORMATION SOURCE (unrecogn ized section and content) DATE CREATED AUTHOR 01/21/2022 [facility] DATE CREATED AUTHOR AUTHOR'S ORGANIZ ATION 04/24/2023 [facility] DATE CREATED AUTHOR AUTHOR'S ORGANIZ ATION 11/05/2024 [facility] EPIC Reason for Visit (unrecogniz ed section and content) Reason Comments Shoulder Pain Right shoulder pain Reason Comments Pain Reason Comments Pain Reason Comments Gynecologic Exam Patient here for a y early. Patient reports that her periods are Irregular, she states that she can go months without a period then have one. She had a period on 06/20/24 then started again on 09/17/24. Patient reports joint pain and a foggy feeling. Would like to discuss. Future mammogram order sent to the [facility]. Never had colonoscopy, plans to f/up with PCP. Does not use anything for birthcontrol, sexually active with women. 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 Relationship Specialty Start Date End Date Terry Das MD [address] [place] [address] PCP - General Family Medicine 06/02/23 [employer] Relationship Specialty Start Date End Date Terry Das MD [address] [place] [address] PCP - General [facility] Medicine 06/02/23 [employer] Relationship Specialty Start Date End Date Terry Das MD [address] [place] [address] PCP - General Family Medicine 06/02/23 Terry Das MD [address] [place] [phone] PCP - [employer] 06/14/24 [employer] Relationship Specialty Start Date End Date Terry Das MD [address] [place] [phone] PCP - General Family Medicine 06/02/23 Terry Das MD [address] [place] [address] PCP - [employer] 06/14/24 [employer] Relationship Specialty Start Date End Date Terry Das MD [address] [place] [address] PCP - General Family Medicine 06/02/23 Terry Das MD [address] [place] [phone] PCP - [employer] 06/14/24 FOR RECORDS PERTAINING TO PATIENTS WHO ARE [...] BE BASED ON THE PRIMARY CLINICAL RECORDS. [facility]. provides no warranty or guarantee of the accuracy or completeness of information in this document.
[2024-11-26 09:18] LABS: Hematocrit 40.8 % (36.0-48.0); Hemoglobin 14.2 g/dL (12.0-16.0); Immature Granulocytes Abs Auto 0.02 10^3/uL (0.00-0.03); Immature Granulocytes Pct Auto 0.3 % (0.0-0.5); Lymphocytes Absolute Auto 2.3 10^3/uL (1.2-3.8); Mean Corpuscular HGB Conc 34.8 g/dL (29.9-35.2); Mean Corpuscular Hemoglobin 29.3 pg (26.7-34.0); Mean Corpuscular Volume 84.3 fL (81.0-99.0); Platelet Count 264 10^3/uL (150-450); Red Blood Count 4.84 10^6/uL (4.20-5.40); White Blood Count 6.0 10^3/uL (4.0-11.0)
[2024-11-26 10:10] LABS: Alanine Aminotransferase 25 U/L (14-59); Albumin Globulin Ratio 1.1; Albumin Level 3.7 g/dL (3.4-5.0); Alkaline Phosphatase 77 U/L (46-116); Anion Gap 13.1; Aspartate Amino Transferase 19 U/L (15-37); Blood Urea Nitrogen 14.0 mg/dL (7.0-18.0); Calcium 8.9 mg/dL (8.5-10.1); Carbon Dioxide 28.0 mmol/L (21.0-32.0); Chloride 105 mmol/L (98-107); Cholesterol 197 mg/dL (<=200); Estimated GFR (African America >60 (>=60 mL/min/1.73m^2); Estimated GFR (Non-African Ame >60 (>=60 mL/min/1.73m^2); Globulin 3.5 g/dL; Glucose 97 mg/dL (74-106); HDL Cholesterol 67 mg/dL (40-60); Potassium 4.1 mmol/L (3.5-5.1); Sodium 142 mmol/L (136-145); Thyroid Stimulating Hormone 2.906 uIU/mL (0.358-3.740); Total Protein 7.2 g/dL (6.4-8.2); Triglycerides 66 mg/dL (<=150); VLDL CHOLESTEROL 13.2 mg/dL
[2024-11-27 07:10] LABS: FSH 19.3 mIU/mL (.)
[2024-11-29 12:10] LABS: Antinuclear Antibodies, IFA Negative (.)
[2024-11-29 22:12] LABS: Estrogens, Total 232 pg/mL (.)
== END 2024-11-26 08:52 | disposition home or self-care (01) ==
PROVIDERS: PCP Family Medicine; Visit Provider Family Medicine
DX: Z00.00 Encounter for general adult medical examination without abnormal findings (principal); N95.1 Menopausal and female climacteric states; M25.50 Pain in unspecified joint
CPT/HCPCS: 36415; 80053; 80061; 82670; 82672; 83001; 83002; 83036; 84144; 84443; 85025; 85652; 86038; 86431

== ENCOUNTER 2024-12-20 15:52 | Outpatient (OUT) | payer BC, SELFPAY ==
--- NOTE | 2024-12-20 15:55 | MM_ITS ---
Patient Name: TIM ALVAREZ MR#: [id number] : 1975 Exam Date: 12/20/2024 Ordering Doctor: DR. CHATA BRAR D.O. RADIOLOGY REPORT PROCEDURE: MM TOMOSYNTHESIS SCREENING BI COMPARISON: MM TOMOSYNTHESIS SCREENING BI, 12/15/2023. MM TOMOSYNTHESIS SCREENING BI, 11/07/2022. MG MAMM SCREEN 3D PATTI CAD, 11/05/2021. MG MAMM SCREEN PATTI W CAD, 10/10/2020. INDICATIONS: Screening Calculator Name NCI Breast Cancer Risk Assessment Tool 5 Year Breast Cancer Risk 1.00% Lifetime Breast Cancer Risk 10.00% Personal Breast Cancer No Personal Ovarian Cancer No Treatments None Family Cancers Mother with lung cancer at age 69; Aunt-paternal with breast cancer at age ~53; Grandfather-maternal with colon cancer at age ~70. LOCATION: [facility] [place] BREAST COMPOSITION: There are scattered areas of fibroglandular density. FINDINGS: RIGHT BREAST: No significant suspicious finding. Similar focal asymmetry is noted . LEFT BREAST: No significant suspicious finding. A similar focal asymmetry is noted. Benign-appearing calcifications are present. DIAGNOSTIC CATEGORY 2--BENIGN FINDING. NO CHANGE FROM COMPARISON. RECOMMENDATIONS: ROUTINE MAMMOGRAM AND CLINICAL EVALUATION IN 12 MONTHS. Dictated by: Joao Rodriguez MD on 12/21/2024 at 14:51 Approved by: Joao Rodriguez MD on 12/21/2024 at 15:02
--- OUTSIDE RECORDS SUMMARY | 2024-12-20 15:58 | XMS_ITS | Encounter Summary ---
Author Organization [facility] Address [address] [place] [address] Care Team Providers Care Manufacturer'S Representative Name Role Phone Terry Vale MD Primary Care Provider Terry Vale MD Unavailable Encounter Details Date Type Department Care Team (Late st Contact Info) Description 12/16/2023 Clinisync Result Encounter [facility] External Department Unsolicited Terry Vale MD [address] [place] [phone] Social History Tobacco Use Types Packs/Day Years [...] often do you attend chur ch or nondenominational services? Patient declined 03/29/2023 Do you belong to any clubs o r organizations such as evangelical groups, unions, fraternal or athletic groups, or [...] and heating? Not hard at all 03/29/2023 [facility] [place] of Occupat ional Health - Occupational Stress [...] place to sleep or slept in a senior care (including now)? Patient refused 03/29/2023 Comments No [...] EDT Office Visit [facility] [address] [place] D [address] [phone] Moni Wayne DO [address] [phone] documented as of this encounter Procedures Procedure Name Priority Date/Time Associated Diagnosis Comments MM TOMOSYNTHESIS SCREENING BI 12/16/2023 8:02 AM EDT documented in this encounter Results * MM TOMOSYNTHESIS SCREENING BI (12/16/2023 8:02 AM EDT) Anatomical Region Laterality Modality Other 12/16/2023 8:02 AM EDT Narrative 12/16/2023 8:03 AM EDT [facility] [place] [id number] Mammography Report Signed Patient: TIM ROCA MR#: [id number] : 1975 Acct:[id number] Age/Sex: 48 / F ADM Date: 12/15/23 Loc: MAMMO Attending Dr: Terry Vale M.D. Ordering Physician: Terry Vale M.D. Results: Date of Service: 12/15/23 Follow Up: Procedure(s): MM tomosynthesis screening BI Accession Number(s): [id number] cc: Terry Vale M.D. Patient Name: TIM ROCA MR#: [id number] : 1975 Exam Date: 12/15/2023 Ordering Doctor: [...] colon cancer at age 70. LOCATION: [facility] BREAST COMPOSITION: There are scattered areas of [...] M.D. Signed By: 12/16/23802 DD/ 1 TD/TT: Global Logistics Analyst: Procedure Note Radiology, RadiologistMD - 12/16/2023 [place] [address] Mammography Report Signed Patient: TIM ROCA MMR#: [id number] : 1975Acct:[id number] Age/Sex: 48 / FADM Date: 12/15/23 Loc: MAMMO Attending Dr: Terry Vale M.D. Ordering Physician: Terry Vale M.D.Results: Date of Service: 12/15/23Follow Up: Procedure(s): MM tomosynthesis screening BI Accession Number(s): [id number] cc: Terry Vale M.D. Patient Name: TIM ROCA MR#: [id number] : 1975 Exam Date: 12/15/2023 Ordering Doctor: DR Terry Vale . RADIOLOGY REPORT PROCEDURE: MM TOMOSYNTHESIS SCREENING BI COMPARISON: MM TOMOSYNTHESIS SCREENING BI, 11/07/2022. MG MAMM [id number] PATTI CAD, 11/05/2021. INDICATIONS: Screening Calculator Name NCI Breast Cancer Risk Assessment Tool 5 Year Breast Cancer Risk 1.00% Lifetime Breast Cancer Risk 10.20% Personal Breast Cancer No Personal Ovarian Cancer No Treatments None Family Cancers Mother with lung cancer at age 69; Aunt-paternal with breast cancer at age 53; Grandfather-maternal with colon cancer at age 70. LOCATION: [facility] BREAST COMPOSITION: There are scattered areas of [...] Barraza M.D. Signed By:12/16/23802 DD/ 1 TD/TT: Global Logistics Analyst: Terry Vale MD [facility] Final Result documented in this encounter Visit Diagnoses Not on filedocumented in this encounter Care Teams Manufacturer'S Representative Relationship Specialty Start Date End Date Terry Vale MD [address] [place] [phone] PCP - General Family Medicine 06/02/23 Terry Vale MD [address] [place] [phone] PCP - [employer] 06/14/24 documented as of this encounter
--- OUTSIDE RECORDS SUMMARY | 2024-12-20 15:58 | XMS_ITS | Clinical Summary ---
Author Organization [facility] Address [address] [place] [address] Phone Care Team Providers Care Retail Parts Professional Name Role Phone Unavailable Primary Care Provider Unavailabl e Encounters Date Type Department Care Team Description 12/17/2024 Patient Risk Score [facility] Care Management [address] [place] [address] 11/17/2024 Patient Risk Score [facility] Care Management [address] [place] [address] 10/17/2024 Patient Risk Score [facility]CO Care Management [address] [facility] [address] [place] [address] from Last 3 Months Social History Tobacco [...] Screening 1975 Lipid Panel 1975 Sigmoidoscopy 1975 MMR Vaccines (1 of 1 - Stand robert series) 10/10/1976 Hepatitis C Screening 10/10/1993 Hepatitis B Vaccines (1 of 3 - 19+ 3-dose series) 10/10/1994 Cervical Cancer Screening 10/10/1996 HPV/Cotest 10/10/1996 Pap Smear 10/10/1996 DTaP/Tdap/Td Vaccines (1 - Tdap) 10/10/1997 Mammogram 12/04/2020 12/05/2019 COVID-19 Vaccine (2023-2 5 season) 2024 Influenza Vaccine (#1) 2024 Yearly Adult Physical 09/30/2025 09/29/2024 Zoster Vaccines (1 of 2) 10/10/2025 HIB [...]
--- OUTSIDE RECORDS SUMMARY | 2024-12-20 15:58 | XMS_ITS | Encounter Summary ---
Author Organization [facility] Address [address] [address] [place] [address] Phone Care Team Providers Care Equipment Tester Name Role Phone Unavailable Primary Care Provider Unavailabl e Encounter Details Date Type Department Care Team (Late st Contact Info) Description 09/16/2024 Patient Risk Score [facility]CO Care Management [address] [place] [address] Social History Tobacco Use Types [...]
--- OUTSIDE RECORDS SUMMARY | 2024-12-20 15:58 | XMS_ITS | Encounter Summary ---
Author Organization [facility] Address [address] [address] [place] [address] Phone Care Team Providers Care District Representative Name Role Phone Unavailable Primary Care Provider Unavailabl e Encounter Details Date Type Department Care Team (Late st Contact Info) Description 11/17/2024 Patient Risk Score ACO Care Management [address] [place] [address] Social History Tobacco Use Types [...]
--- OUTSIDE RECORDS SUMMARY | 2024-12-20 15:58 | XMS_ITS | Clinical Summary ---
Author Organization [facility] Address [address] [place] [address] Care Team Providers Care Automatic Paint Sprayer Operator Name Role Phone Jatinder White MD Primary Care Provider [phone] Allergies No known active allergies Medications NAPROXEN [...] Blood 10/10/2020 Lipid Screening 10/10/2020 Sigmoidoscopy 10/10/2020 Covid-19 Vaccine ( season) 2024 Influenza Vaccine (#1) 2024 Care Teams Automatic Paint Sprayer Operator Relationship Specialty Start Date End Date Jatinder White MD PCP - General Internal Medicine 04/03/14
--- OUTSIDE RECORDS SUMMARY | 2024-12-20 15:58 | XMS_ITS | Encounter Summary ---
Author Organization [facility] Address [address] [facility] [address] Phone Care Team Providers Care Weight Checker Name Role Phone Unavailable Primary Care Provider Unavailabl e Encounter Details Date Type Department Care Team (Late st Contact Info) Description 10/17/2024 Patient Risk Score [facility]CO Care Management [address] [place] [address] Social History Tobacco Use Types [...]
--- OUTSIDE RECORDS SUMMARY | 2024-12-20 15:58 | XMS_ITS | Clinical Summary ---
Author Organization [facility] Healthcare Address [address] [place] [address] Care Team Providers Care Animal Husbandry Technician Name Role Phone Terry Vale MD Primary Care Provider [phone] Terry Vale MD Unavailable Allergies No known active allergies Medications fexofenadine (Flora) 180 MG tablet Take 180 mg by mouth Daily Active fluticasone (Flonase) 50 MCG/ACT nasal spray Administer 2 sprays into each nostril Daily Shake gently. Before first use, prime pump. After use, clean tip and replace cap. Active metoprolol succinate XL (Toprol-XL) 25 MG 24 hr tabletIndicatio ns:Paroxysmal SVT (supraventricul ar tachycardia) (HCC) TAKE 1/2 TABLET BY MOUTH DAILY 45 tablet 3 5 Active meloxicam (Mobic) 15 MG tabletIndicatio ns:Right hip pain Take 1 tablet (15 mg) by mouth Daily 30 tablet 11 5 06/17/19 26 Active citalopram (CeleXA) 10 MG tabletIndicatio ns:Stress reaction Take 1 tablet (10 mg) by mouth Daily 30 tablet 2 5 Active Active Problems Problem Noted Date Diagnosed Date Annual physical exam 11/03/2024 Assessment & Plan (11/03/2024 3:18 PM EDT): Due for labs. Discussed proper diet and regular aerobic exercise. Need aerobic exercise 5-6 days a week for 30 minutes at a time. Smaller portions and limit total calories. Cologuard normal August 2022. Tetanus every 10 years. Advised not to smoke. Perimenopausal 11/03/2024 Arthralgia 11/03/2024 Stress reaction 11/03/2024 Assessment & Plan (11/03/2024 3:18 PM EDT): Severe symptoms and start celexa. Chronic right shoulder pain 04/27/2024 Assessment & Plan (04/27/2024 9:24 AM EST): Pain for months and positive empty can sign suggesting impingement. Check x-ray to assess for arthritis changes. Treat with prednisone. Handout with ROM exercises. If no improvement will need ortho evaluation. Seasonal allergic rhinitis due to pollen 024 Paroxysmal SVT (supraventricular tachycardia) Resolved Problems Problem Noted Date Diagnosed Date Resolved Date Irritable bowel syndrome with diarrhea 03/30/2023 11/03/2024 Assessment & Plan (03/30/2023 11:17 AM EST): Recent pain and cramping along with change in stool. Likely IBS and increase fiber. Take probiotic daily. Refer to surgeon for possible colonoscopy. Chronic superficial gastriti s without bleeding 03/30/2023 11/03/2024 Assessment & Plan (03/30/2023 11:17 AM EST): Occasional symptoms and use OTC PRN. Encounters Date Type Department Care Team Description 11/03/2024 2:30 PM EDT Office Visit [facility] [address] [place] [id number] Terry Vale MD Annual physical exam (Primary Dx); Perimenopausal; Arthralgia, unspecified joint; Stress reaction 11/03/2024 Bamboo flowsheet [facility] [address] [place] [id number] Terry Vale MD 09/29/2024 2:45 PM EDT Office Visit [facility] [address] [address] Moni Wayne, DO Encounter for gynecological examination without abnormal finding (Primary Dx); Irregular menstrual cycle; Arthralgia, unspecified joint; Perimenopause; Other screening mammogram; Family planning 09/29/2024 Travel from Last 3 Months Family History Medical History Relation Name Comments Cancer Maternal Grandfather [place] Diabetes Maternal Grandfather [place] Heart disease Maternal Grandfather [place] Hyperlipidemia Maternal Grandfather [place] Hypertension Maternal Grandfather [place] Diabetes Maternal Grandmother Katherine Heart disease Maternal Grandmother Katherine Hyperlipidemia Maternal Grandmother Katherine Hypertension Maternal Grandmother Katherine Cancer Mother Amy Hyperlipidemia Mother Amy Hypertension Mother Amy Osteoporosis Mother Amy Rheumatologic disease Mother Amy Heart disease Paternal Grandfather Hyperlipidemia Paternal Grandfather Hypertension Paternal Grandfather Heart disease Paternal Grandmother Hyperlipidemia Paternal Grandmother Hypertension Paternal Grandmother Relation Name Status Comments Maternal Grandfather [place] Maternal Grandmother Katherine Mother Amy Paternal Grandfather Paternal Grandmother Social History Tobacco Use Types Packs/Day Years Used Date Smoking Tobacco: Never Smokeless Tobacco: Never Tobacco Cessation:Counseling Given: Not Answered Alcohol Use Standard Drinks/Week Comments Yes 0 (1 standard drink = 0.6 oz pur e alcohol) maybe 2-3 per month Humiliation, Afraid, Rape, and Kick questionnair e [...] 03/29/2023 How often do you attend chur or pentecostalism services? Patient declined 03/29/2023 Do you belong to any clubs o r organizations such as jain groups, unions, fraternal or athletic groups, or [...] and heating? Not hard at all 03/29/2023 [facility] - Occupational Stress [...] place to sleep or slept in a fdc (including now)? Patient refused 03/29/2023 Comments No Sex and Gender Information Value Date Recorded Sex Assigned at Not on file Legal Sex Female 7:17 PM EDT Gender Identity Female 03/29/2023 11:10 AM EST Sexual Orientation Not on file Last Filed Vital Signs Vital Sign Reading Time Taken Comments Blood Pressure 142/78 11/03/2024 2:33 PM EDT Pulse 69 11/03/2024 2:33 PM EDT Temperature 36.2 C (97.1 F) 11/03/2024 2:33 PM EDT Respiratory Rate 22 11/03/2024 2:33 PM EDT Oxygen Saturation 98% 11/03/2024 2:33 PM EDT Inhaled Oxygen Concentration - - Weight 92.5 kg (204 lb) 11/03/2024 2:33 PM EDT Height 162.6 cm (5' 4 ) 11/03/2024 2:33 PM EDT Body Mass Index 35.02 11/03/2024 2:33 PM EDT Plan of Treatment Upcoming Encounters Date Type Department Care Team (Late st Contact Info) Description 10/03/2025 2:45 PM EDT Office Visit [facility] [address] [place] D [address] [address] Moni Wayne DO [address] [address] Health Maintenance Due Date Last Done Comments CT Colonography 1975 Colonoscopy 1975 FIT 1975 FOBT 1975 Sigmoidoscopy 1975 HPV/Cotest 10/10/2005 Influenza Vaccine (#1) 2024 , 01/28/2021, 12/26/2019, Additional history exists Mammogram 12/15/2024 12/16/2023, 0807/2022, 12/05/2019, Additional history exists Colorectal Cancer Screening 08/31/2025 FIT-DNA 08/31/2025 08/31/2022 Cervical Cancer Screening 06/07/2026 Pap Smear 06/07/2026 06/08/2023 Procedures Procedure Name Priority Date/Time Associated Diagnosis Comments MM TOMOSYNTHESIS SCREENING BI 12/16/2023 8:02 AM EDT THINPREP TIS PAP AND HPV MRNA E6/E7 REFLEX HPV 16,18/45 (23873) Routine 06/08/2023 12:00 AM EDT from Last 3 Months or Most Recently Relevant to Health Maintenance Results * MM TOMOSYNTHESIS SCREENING BI (12/16/2023 8:02 AM EDT) Anatomical Region Laterality Modality Other 12/16/2023 8:02 AM EDT Narrative 12/16/2023 8:03 [place] [address] Mammography Report Signed Patient: TIM ALVAREZ MR#: [id number] : 1975 Acct:[id number] Age/Sex: 48 / F ADM Date: 12/15/23 Loc: MAMMO Attending Dr: Terry Vale M.D. Ordering Physician: Terry Vale M.D. Results: Date of Service: 12/15/23 Follow Up: Procedure(s): MM tomosynthesis screening BI Accession Number(s): [id number] cc: Terry Vale M.D. Patient Name: TIM ALVAREZ MR#: [id number] : 1975 Exam Date: 12/15/2023 Ordering Doctor: [...] colon cancer at age 70. LOCATION: [facility] BREAST COMPOSITION: There are scattered areas [...] LUMP SHOULD BE BIOPSIED. Dictated by: Nicola Vaughan MD on 12/16/2023 at 08:00 Approved by: Nicola Vaughan MD on 12/16/2023 at 08:02 Dictated By: Nicola Vaughan M.D. Signed By: 12/16/23802 DD/ 1 TD/TT: Sizing Machine Tender: Procedure Note Radiology, RadiologistMD - 12/16/2023 [place] [address] Mammography Report Signed Patient: TIM ALVAREZ MMR#: [id number] : 1975Acct:[id number] Age/Sex: 48 / FADM Date: 12/15/23 Loc: MAMMO Attending Dr: Terry Vale M.D. Ordering Physician: Terry Vale M.D.Results: Date of Service: 12/15/23Follow Up: Procedure(s): MM tomosynthesis screening BI Accession Number(s): [id number] cc: Terry Vale M.D. Patient Name: TIM ALVAREZ MR#: [id number] : 1975 Exam Date: 12/15/2023 Ordering Doctor: DR Terry Vale . RADIOLOGY REPORT PROCEDURE: MM TOMOSYNTHESIS SCREENING BI COMPARISON: MM TOMOSYNTHESIS SCREENING BI, 11/07/2022. MG MAMM [id number] PATTI CAD, 11/05/2021. INDICATIONS: Screening Calculator Name NCI Breast Cancer Risk Assessment Tool 5 Year Breast Cancer Risk 1.00% Lifetime Breast Cancer Risk 10.20% Personal Breast Cancer No Personal Ovarian Cancer No Treatments None Family Cancers Mother with lung cancer at age 69; Aunt-paternal with breast cancer at age 53; Grandfather-maternal with colon cancer at age 70. LOCATION: [facility] BREAST COMPOSITION: There are scattered areas [...] LUMP SHOULD BE BIOPSIED. Dictated by: Nicola Vaughan MD on 12/16/2023 at 08:00 Approved by: Nicola Vaughan MD on 12/16/2023 at 08:02 Dictated By: Nicola Vaughan M.D. Signed By:12/16/23802 DD/ 1 TD/TT: Sizing Machine Tender: Terry Vale MD [facility] Final Result * THINPREP TIS PAP AND HPV MRNA E6/E7 REFLEX HPV 16,18/45 (11139) (06/08/2023 12:00 AM EDT) us Yuri Walsh DO [facility] Final Result [facility] from Last 3 Months or Most Recently Relevant to Health Maintenance Insurance [facility] Member Subscriber Plan / Payer (Ef fective 2024-Present) Name:Tim Alvarez Member ID:[id number] Relation to Subscriber:Self Name:Tim Alvarez Subscriber ID:[id number] Payer ID:Not on file Type:Not on file Address: [facility] [address] [place] [address] Care Teams Animal Husbandry Technician Relationship Specialty Start Date End Date Terry Vale MD [address] [place] [address] PCP - General Family Medicine 06/02/23 Terry Vale MD [address] [place] [address] PCP - [facility] 06/14/24
--- OUTSIDE RECORDS SUMMARY | 2024-12-20 15:58 | XMS_ITS | Encounter Summary ---
Author Organization [facility] Address [address] [place] [address] Phone Care Team Providers Care Floorperson Name Role Phone Unavailable Primary Care Provider Unavailabl e Encounter Details Date Type Department Care Team (Late st Contact Info) Description 12/17/2024 Patient Risk Score ACO Care Management [address] [place] [address] Social History Tobacco Use Types [...]
--- OUTSIDE RECORDS SUMMARY | 2024-12-20 16:00 | XMS_ITS | CCD ---
Author Organization [facility] Care Team Providers Care Mems Engineer Name Role Phone GERALD, DR BRANTLEY Admitting Unavailable HOY, DR BRANTLEY Attending Unavailable HOY, DR BRANTLEY Consulting Unavailable KARASIK, DR REAL Admitting Unavailable KARASIK, DR REAL Attending Unavailable KARASIK, DR REAL Consulting Unavailable ELAINE, TIP Admitting Unavailable EALINE, TIP Attending Unavailable ELAINE, TIP Consulting Unavailable [...] Unavailable Terry Das MD Primary Care Provider [phone] Terry Das MD Unavailable TERRY DAS Attending Unavailable WILHELM, JORGE Celis Referring Unavailable WILHELM, JORGE Celis Attending Unavailable WILHELM, JORGE Celis Referring Unavailable WILHELM, JORGE Celis Attending Unavailable NATAPRAWIRAMONI Attending Unavailable TERRY DAS Attending Unavailable Medications [...] complications Consent was given by the patient. [employer] [facility] XR Hip - right 3 [facility] Result: X-rays, permanently saved to the patient's record, are reviewed AP pelvis, right hip taken in the [place] office saved to the permanent record shows [...] infection seen. No sign of avascular necrosis. [employer] [facility] XR Hip - right 3 [facility] Radiology Study observation (narrative) [facility] [employer] No Panel Informationon 06-07 [employer] Physician Referralon 024 Physician Referral [id number] TIFF Normal [facility] US PELVIS AND TRANSVAGon US PELVIS [...] mass, a fibroid is favored. Normal [facility] MAMM SCREEN 3D PATTI CADon 11-05-2021 MAMM SCREEN 3D PATTI CAD Patient: TIM ROCA Exam Date: 11/05/2021 : 1975 Gender:F Ordering : DR FARHAN DUMONT . Admission #: [id number] Family : Order #: [id number] CLICK HERE TO VIEW EXAM RADIOLOGY REPORT [...] colon cancer at age 70. LOCATION: [facility] BREAST COMPOSITION: Scattered areas fibroglandular density. FINDINGS: [...] Taylor M.D. on 11/06/2021 at 10:44 Normal [facility] SYMPTOMATIC COVID-19 ANTIGEN on 09-16-2021 EUA Statement SEE BELOW Normal [facility] Comment on above: Result Comment: This [...] sooner. Performed By: #### C VDAGS #### [facility] [address] [place] [address] Dr. Yvette Dewey SARS-CoV-2 (COVID-19) RNA LEONIE+probe Ql (Unsp spec) Negative Normal NEGATIVE [facility] Comment on above: Performed By: #### C VDAGS #### [facility] [address] [place] [address] Dr. Yvette Dewey PAP ACOG PANEL 2: 30 to 65on 07-24-2021 . . Normal [facility] Comment on above: Result Comment: Perf ormed at: WB Performed By: #### [id number] #### [facility] [address] [place] [address] Dr. Yvette Dewey Age Gdln ACOG Testing 30-[address] [facility] Comment on above: Performed By: #### [id number] #### [facility] [address] [place] [address] Dr. Yvette Dewey DIAGNOSIS: Comment Normal [facility] Comment on above: Result Comment: NEGA TIVE FOR INTRAEPITHELIAL LESION OR MALIGNANCY. Performed at: WB Performed By: #### [id number] #### [facility] [address] [place] [address] Dr. Yvette Dewey HPV Aptima Negative Normal Negative [facility] Comment on above: Result Comment: This nucleic acid amplification test detects fourteen high-risk HPV types (16,18,31,33,35,39,45,51,52,56,58,59,66,68) without differentiation. Performed at: =G Performed By: #### [id number] #### [facility] [address] [place] [address] Dr. Yvette Dewey Methodology: Comment Normal [facility] Comment on above: Result Comment: This liquid based ThinPrep(R) pap test was screened with the use of an image guided system. Performed at: WB Performed By: #### [id number] #### [facility] [address] [place] [address] Dr. Yvette Dewey Note: Comment Normal [facility] Comment on above: Result Comment: The Pap smear is a screening test designed to aid in the detection of premalignant and malignant conditions of the uterine cervix. It is not a diagnostic procedure and should not be used as the sole means of detecting cervical cancer. Both false-positive and false-negative reports do occur. . Performed at: WB Performed By: #### [id number] #### [facility] [address] [place] [address] Dr. Yvette Dewey Performed by: Comment Normal [facility] Comment on above: Result Comment: Ellen Carter, Supervisory Nature Photographer (ASCP) Performed at: WB Performed By: #### [id number] #### [facility] [address] [place] [address] Dr. Yvette Dewey Specimen adequacy: Comment Normal [facility] Comment on above: Result Comment: Sati sfactory for evaluation. Endocervical and/or squamous metaplastic cells (endocervical component) are present. Performed at: WB Performed By: #### [id number] #### [facility] [address] [place] [address] Dr. Yvette Dewey QUANTIFERON TB GOLD PLUS (NO N-INC)on 02-25-[address] [facility] Comment on above: Performed By: #### Q NTTBG #### [facility] [address] [address] [address] Yvette Dewey Criteria Comment Normal [facility] Comment on above: Result Comment: The QuantiFERON-TB Gold Plus result is determined by subtracting the Nil value from either TB antigen (Ag) tube. The mitogen tube serves as a control for the test. Performed By: #### Q NTTBG #### [facility] [address] [address] [address] Yvette Dewey Mitogen Value >10.00 Normal [facility] Comment on above: Performed By: #### Q NTTBG #### [facility] [address] [place] [address] Dr. Yvette Dewey Nill Value 0.02 IU/mL Normal [facility] Comment on above: Performed By: #### Q NTTBG #### [facility] [address] [place] [address] Dr. Yvette Dewey Quantiferon Gold Plus Negative Normal Negative [facility] Comment on above: Result Comment: Chem iluminescence immunoassay methodology Performed By: #### Q NTTBG #### [facility] [address] [place] [address] Dr. Yvette Dewey TB1 Ag Value 0.28 IU/mL Normal [facility] Comment on above: Performed By: #### Q NTTBG #### [facility] [address] [place] [address] Dr. Yvette Dewey TB2 Ag Value 0.35 IU/mL Normal [facility] Comment on above: Performed By: #### Q NTTBG #### [facility] [address] [place] [address] Dr. Yvette Dewey HEPATITIS B SURFACE ANTIBODY , QUANTon 02-23-2021 Hepatitis B Surf AB Quant 19.4 mIU/mL Normal Immunity>9.9 [facility] Comment on above: Result Comment: Stat us of Immunity Anti-HBs Level Inconsistent with Immunity 0.0 - 9.9 Consistent with Immunity >9.9 Performed By: #### H EPBSRF #### [facility] [address] [place] [address] Dr. Yvette Dewey MMR IMMUNITYon 02-23-2021 Mumps Abs, IgG 38.3 AU/mL Normal Immune >10.9 [facility] Comment on above: Result Comment: Nega tive <9.0 Equivocal 9.0 - 10.9 Positive >10.9 A positive result generally indicates past exposure to Mumps virus or previous vaccination. Performed By: #### M MRIMMU #### [facility] [address] [place] [address] Dr. Yvette Dewey Rubella Antibodies, IgG 1.76 index Normal Immune >0.99 [facility] Comment on above: Result Comment: Non- immune <0.90 Equivocal 0.90 - 0.99 Immune >0.99 Performed By: #### M MRIMMU #### [facility] [address] [place] [address] Dr. Yvette Dewey Rubeola Ab, IgG 39.8 AU/mL Normal Immune >16.4 [facility] Comment on above: Result Comment: Nega tive <13.5 Equivocal 13.5 - 16.4 Positive >16.4 Presence of antibodies to Rubeola is presumptive evidence of immunity except when acute infection is suspected. Performed By: #### M MRIMMU #### [facility] [address] [place] [address] Dr. Yvette Dewey VARICELLA IGG ABon Varicella Zoster IgG >4000 Normal Immune >165 [facility] Comment on above: Result Comment: Nega tive <135 Equivocal 135 - 165 Positive >165 A positive result generally indicates exposure to the pathogen or administration of specific immunoglobulins, but it is not indication of active infection or stage of disease. Performed By: #### V ARCEL #### [facility] [address] [place] [address] Dr. Yvette Dewey Vital Signs Date Time Vital Sign Value Performing Clinician Faci lity 11-03-2024 14:33-0400 Body height 162.6 cm Terry Das MD Work Phone: [facility] 11-03-2024 14:33-0400 Body mass index (BMI) [Ratio] 35.02 kg/m2 Terry Das MD Work Phone: [facility] 11-03-2024 14:33-0400 Body temperature 97.11 [degF] Terry Das MD Work Phone: [facility] 11-03-2024 14:33-0400 Body weight 92.53 kg Terry Das MD Work Phone: [facility] 11-03-2024 14:33-0400 Diastolic blood pressure 78 mm[Hg] Terry Das MD Work Phone: [facility] 11-03-2024 14:33-0400 Heart rate 69 /min Terry Das MD Work Phone: [facility] 11-03-2024 14:33-0400 Respiratory rate 22 /min Terry Das MD Work Phone: [facility] 11-03-2024 14:33-0400 SaO2% (BldA) [Mass fraction] 98 % Terry Das MD Work Phone: [facility] 11-03-2024 14:33-0400 Systolic blood pressure 142 mm[Hg] Terry Das MD Work Phone: [facility] 09-29-2024 14:50-0400 Body mass index (BMI) [Ratio] 34.84 kg/m2 Moni Nataprawira DO Work Phone: [facility] 09-29-2024 14:50-0400 Body weight 92.08 kg Moni Nataprawira DO Work Phone: [facility] 09-29-2024 14:50-0400 Diastolic blood pressure 80 mm[Hg] Moni Nataprawira DO Work Phone: [facility] 09-29-2024 14:50-0400 Systolic blood pressure 124 mm[Hg] Moni Nataprawira DO Work Phone: [facility] 06-30-2024 15:30-0400 Body height 162.6 cm Jorge Wilhelm DO Work Phone: [facility] 06-30-2024 15:30-0400 Body mass index (BMI) [Ratio] 36.73 kg/m2 Jorge Wilhelm DO Work Phone: [facility] 06-30-2024 15:30-0400 Body weight 97.07 kg Jorge Wilhelm DO Work Phone: [facility] 06-16-2024 15:40-0400 Body height 165.1 cm Jorge Wilhelm DO Work Phone: [facility] 06-16-2024 15:40-0400 Body mass index (BMI) [Ratio] 36.28 kg/m2 Jorge Wilhelm DO Work Phone: [facility] 06-16-2024 15:40-0400 Body weight 98.88 kg Jorge Wilhelm DO Work Phone: [facility] 04-27-2024 08:49-0500 Body height 165.1 cm Terry Das MD Work Phone: [facility] 04-27-2024 08:49-0500 Body mass index (BMI) [Ratio] 36.28 kg/m2 Terry Das MD Work Phone: [facility] 04-27-2024 08:49-0500 Body temperature 97.11 [degF] Terry Das MD Work Phone: [facility] 04-27-2024 08:49-0500 Body weight 98.88 kg Terry Das MD Work Phone: [facility] 04-27-2024 08:49-0500 Diastolic blood pressure 76 mm[Hg] Terry Das MD Work Phone: [facility] 04-27-2024 08:49-0500 Heart rate 92 /min Terry Das MD Work Phone: [facility] 04-27-2024 08:49-0500 Respiratory rate 18 /min Terry Das MD Work Phone: [facility] 04-27-2024 08:49-0500 SaO2% (BldA) [Mass fraction] 99 % Terry Das MD Work Phone: [facility] 04-27-2024 08:49-0500 Systolic blood pressure 132 mm[Hg] Terry Das MD Work Phone: [facility] Healthcare Encounters Encounter Date Encounter [...] encounter procedure Terry Das MD Work Phone: [facility] Healthcare Work Phone: Start: 09-29-2024 End: 09-29-2024 Patient encounter status Moni Wayne DO Work Phone: [facility] Healthcare Work Phone: Start: 09-29-2024 End: 09-29-2024 Periodic preventive med est patient 40-64yrs Moni Wayne DO Work Phone: [facility] Comment on above: Encounter for [...] AND HPV MRNA E6/E7 REFLEX HPV 16,18/45 (15629) Yuri Walsh DO Work Phone: Plan of Treatment Date Care Activity Detail Author Start: 06-07-2026 Screening for malignant neoplasm of cervix [facility] Start: 10-03-2025 End: 10-03-2025 Patient encounter procedure [facility] Start: 08-31-2025 Screening for malignant neoplasm of colon [facility] Start: 12-16-2024 End: 11-30-2025 DBT Breast - bilateral screening Bilateral screening mammogram with tomosynthesis Imaging Routine Other screening mammogram Expected: 12/16/2024, Expires: 11/30/2025 [facility] Work Phone: Comment on above: Expected: 12/16/2024, Expires: Start: 12-15-2024 Screening for malignant neoplasm of breast Mammogram [facility] Start: 12-06-2024 End: 12-06-2024 Patient encounter procedure 12/06/2024 3:15 PM EDT Office Visit [facility] [address] [place] [phone] Terry Das MD [address] [place] [phone] [facility] Start: 11-14-2024 Influenza vaccination Influenza Vaccine (#1) [facility] Start: 11-03-2024 End: 11-03-2024 Patient encounter procedure 11/03/2024 2:30 PM EDT Office Visit [facility] [address] [place] [address] Terry Das MD [address] [place] [address] Arrived [facility] Comment on above: Arrived Start: 11-03-2024 End: 11-03-2025 CBC W Auto Differential panel - Blood CBC and differential Lab Routine Annual physical exam Expected: 11/03/2024 (Approximate), Expires: 11/03/2025 [facility] Comment on above: Expected: 11/03/2024 (Approximate), Expi res: 11/03/2025 Start: 11-03-2024 End: 11-03-2025 Comprehensive metabolic 2000 panel - Serum or Plasma Comprehensive metabolic panel Lab Routine Annual physical exam Expected: 11/03/2024 (Approximate), Expires: 11/03/2025 [facility] Comment on above: Expected: 11/03/2024 (Approximate), Expi res: 11/03/2025 Start: 11-03-2024 End: 11-03-2025 Erythrocyte sedimentation rate Sedimentation rate, automated Lab Routine Arthralgia, unspecified joint Expected: 11/03/2024 (Approximate), Expires: 11/03/2025 [facility] Comment on above: Expected: 11/03/2024 (Approximate), Expi res: 11/03/2025 Start: 11-03-2024 End: 11-03-2025 Estradiol Estradiol Lab Routine Perimenopausal Expected: 11/03/2024 (Approximate), Expires: 11/03/2025 [facility] Comment on above: Expected: 11/03/2024 (Approximate), Expi res: 11/03/2025 Start: 11-03-2024 End: 11-03-2025 Estrogens, total Estrogens, total Lab Routine Perimenopausal Expected: 11/03/2024 (Approximate), Expires: 11/03/2025 [facility] Comment on above: Expected: 11/03/2024 (Approximate), Expi res: 11/03/2025 Start: 11-03-2024 End: 11-03-2025 FSH FSH Lab Routine Perimenopausal Expected: 11/03/2024 (Approximate), Expires: 11/03/2025 [facility] Healthcare Comment on above: Expected: 11/03/2024 (Approximate), Expi res: 11/03/2025 Start: 11-03-2024 End: 11-03-2025 Hemoglobin A1c/Hemoglobin.total in Blood Hemoglobin A1c Lab Routine Annual physical exam Expected: 11/03/2024 (Approximate), Expires: 11/03/2025 [facility] Comment on above: Expected: 11/03/2024 (Approximate), Expi res: 11/03/2025 Start: 11-03-2024 End: 11-03-2025 Lipid 1996 panel - Serum or Plasma Lipid panel Lab Routine Annual physical exam Expected: 11/03/2024 (Approximate), Expires: 11/03/2025 [facility] Comment on above: Expected: 11/03/2024 (Approximate), Expi res: 11/03/2025 Start: 11-03-2024 End: 11-03-2025 Luteinizing hormone Luteinizing hormone Lab Routine Perimenopausal Expected: 11/03/2024 (Approximate), Expires: 11/03/2025 [facility] Healthcare Comment on above: Expected: 11/03/2024 (Approximate), Expi res: 11/03/2025 Start: 11-03-2024 End: 11-03-2025 Nuclear Ab [Titer] in Serum by Immunofluorescence COLBY Lab Routine Arthralgia, unspecified joint Expected: 11/03/2024 (Approximate), Expires: 11/03/2025 [facility] Healthcare Comment on above: Expected: 11/03/2024 (Approximate), Expi res: 11/03/2025 Start: 11-03-2024 End: 11-03-2025 Progesterone Progesterone Lab Routine Perimenopausal Expected: 11/03/2024 (Approximate), Expires: 11/03/2025 [facility] Work Phone: Comment on above: Expected: 11/03/2024 (Approximate), Expi res: 11/03/2025 Start: 11-03-2024 End: 11-03-2025 Rheumatoid factor [Units/volume] in Serum or Plasma Rheumatoid factor Lab Routine Arthralgia, unspecified joint Expected: 11/03/2024 (Approximate), Expires: 11/03/2025 [facility] Comment on above: Expected: 11/03/2024 (Approximate), Expi res: 11/03/2025 Start: 11-03-2024 End: 11-03-2025 Thyrotropin [Units/volume] in Serum or Plasma TSH Lab Routine Annual physical exam Expected: 11/03/2024 (Approximate), Expires: 11/03/2025 [facility] Comment on above: Expected: 11/03/2024 (Approximate), Expi res: 11/03/2025 Start: 06-30-2024 End: 06-30-2024 Patient encounter procedure 06/30/2024 3:30 PM EDT Office Visit [facility] [address] [place] [address] Jorge Wilhelm DO [address] [place] [address] [facility] Start: 04-27-2024 End: 04-27-2025 XR Shoulder - right 2 Views XR shoulder 2+ views right Imaging Routine Chronic right shoulder pain Expected: 04/27/2024, Expires: 04/27/2025 [facility] Work Phone: Comment on above: Expected: 04/27/2024, Expires: Start: 10-10-2005 Screening for malignant neoplasm of cervix [facility] Start: 10-10-1996 Screening for malignant neoplasm of cervix Pap Smear [facility] Start: 1975 Screening for malignant neoplasm of colon [facility] XR Shoulder - right 2 Views XR s houlder 2+ views right Imaging Routine Chronic right shoulder pain 06/30/2024 11:02 AM EDT [facility] Work Phone: Immunizations Immunization Date Immunization Notes Care Provider Fa cili 01-02-2024 influenza virus vaccine, unspecified formulation Moni Wayne DO Work Phone: [facility] Healthcare Payers Date Payer Category Payer Blue [employer] Blue [employer] [id number] 2024 Unknown [id number] 2024 Private Health Insurance [employer] [id number] 2024 Unknown [id number] 2023 Unknown [id number] 2019 Unknown [id number] 1975 Unknown [id number] 2.16.840.1.573164.3.579.2. 593 1975 Unknown [id number] 2.16.840.1.074600.3.579.2. 593 1975 Unknown [id number] 2.16.840.1.450138.3.579.2. 593 1975 Unknown [id number] 2.16.840.1.293964.3.579.2. 727 1975 Unknown [id number] 2.16.840.1.514120.3.579.2. 1259 1975 Unknown [id number] 2.16.840.1.247155.3.579.2. 9 1975 Unknown [id number] 2.16.840.1.963680.3.579.2. 1258 1975 Unknown [id number] 2.16.840.1.556514.3.579.2. 1258 1975 Unknown [id number] 2.16.840.1.929719.3.579.2. 1258 1975 Unknown [id number] 2.16.840.1.273016.3.579.2. 1258 1975 Unknown [id number] 2.16.840.1.282782.3.579.2. 1259 1959 Self-pay Unknown [id number] 2.16.840.1.997288.3.579.2. 593 Unknown [id number] 2.16.840.1.004419.3.579.2. 593 Social History Date Type Detail Facility Start: 03-30-2023 Tobacco smoking status TXIS Never sm oked tobacco [facility] Start: [...] Healthcare How often do you att end jainism or cheondoism services? Patient declined [facility] Are you [...] discuss. Future mammogram order sent to the [facility]. Never had colonoscopy, plans to f/up with [...] Hypertension Maternal Grandmother Katherine Hyperlipidemia Maternal Grandfather [place] Heart disease Maternal Grandfather [place] Diabetes Maternal Grandfather [place] Cancer Maternal Grandfather [place] Hypertension Maternal Grandfather [place] Hyperlipidemia Paternal Grandmother Heart disease Paternal Grandmother [...] occasional clicking. Care was assisted with physician health center assistant, Edwin Lerner, today. SUBJECTIVE: MEDICATIONS: Current [...] Amy Osteoporosis Mother Amy Rheumatologic disease Mother Aym Hyperlipidemia Maternal Grandmother Katherine Heart disease Maternal Grandmother Katherine Diabetes Maternal Grandmother Katherine Hypertension Maternal Grandmother Katherine Hyperlipidemia Maternal Grandfather [place] Heart disease Maternal Grandfather [place] Diabetes Maternal Grandfather [place] Cancer Maternal Grandfather [place] Hypertension Maternal Grandfather [place] Hyperlipidemia Paternal Grandmother Heart disease Paternal Grandmother [...] AP pelvis, right hip taken in the [place] office saved to the permanent record shows [...] 2+ views right documented in this encounter [facility] Healthcare Evaluation note Note Date & Type Note Facility Evaluation note Diagnosis Irritable bowel syndrome with diarrhea- Primary Irritable bowel syndrome Chronic superficial gastritis without bleeding Paroxysmal SVT (supraventricular tachycardia) ([facility]) Encounter for female family planning counseling Chronic right shoulder pain- Primary Pain in joint, shoulder region documented in this encounter [facility] Evaluation note Note Date & Type Note Facility Evaluation note Diagnosis Irritable bowel syndrome with diarrhea- Primary Irritable bowel syndrome Chronic superficial gastritis without bleeding Paroxysmal SVT (supraventricular tachycardia) ([facility]) Encounter for female family planning counseling Chronic right shoulder pain- Primary Pain in joint, shoulder region Right hip pain- Primary Pain in joint, pelvic region and thigh documented in this encounter [facility] Healthcare Evaluation note Note Date & Type Note Facility Evaluation note Diagnosis Irritable bowel syndrome with diarrhea- Primary Irritable bowel syndrome Chronic superficial gastritis without bleeding Paroxysmal SVT (supraventricular tachycardia) ([facility]) Encounter for female family planning counseling Chronic right shoulder pain- Primary Pain in joint, shoulder region Chronic right shoulder pain- Primary Pain in joint, shoulder region documented in this encounter [facility] Evaluation note Note Date & Type Note Facility Evaluation note Diagnosis Irritable bowel syndrome with diarrhea- Primary Irritable bowel syndrome Chronic superficial gastritis without bleeding Paroxysmal SVT (supraventricular tachycardia) ([facility]) Encounter for female family planning counseling Chronic [...] section and content) DATE CREATED AUTHOR 01/21/2022 [facility] DATE CREATED AUTHOR AUTHOR'S ORGANIZ ATION 04/24/2023 [facility] DATE CREATED AUTHOR AUTHOR'S ORGANIZ ATION 11/05/2024 [facility] d[facility] Specialists EPIC Reason for Visit (unrecogniz [...] discuss. Future mammogram order sent to the [facility]. Never had colonoscopy, plans to f/up with PCP. Does not use anything for birthcontrol, sexually active with women. Reason Comments Annual Exam wellness Hip Pain Shoulder Pain Care Teams (unrecognized sec tion and content) Mems Engineer Relationship Specialty Start Date End Date Terry Das MD [address] [place] [address] PCP - General Family Medicine 06/02/23 Mems Engineer Relationship Specialty Start Date End Date Terry Das MD [address] [place] [address] PCP - General [facility] Medicine 06/02/23 Mems Engineer Relationship Specialty Start Date End Date Terry Das MD [address] [place] [address] PCP - General Family Medicine 06/02/23 Terry Das MD [address] [place] [address] PCP - [place] [employer] 06/14/24 Mems Engineer Relationship Specialty Start Date End Date Terry Das MD [address] [place] [phone] PCP - General Family Medicine 06/02/23 Terry Das MD [address] [place] [address] PCP - [facility] 06/14/24 Mems Engineer Relationship Specialty Start Date End Date Terry Das MD [address] [place] [address] PCP - General Family Medicine 06/02/23 Terry Das MD [address] [place] [id number] PCP - [facility] [employer] 06/14/24 FOR RECORDS PERTAINING TO PATIENTS [...] BE BASED ON THE PRIMARY CLINICAL RECORDS. [facility] provides no warranty or guarantee of the accuracy or completeness of information in this document.
== END 2024-12-20 15:53 | disposition home or self-care (01) ==
LOC: MAMMO 15:52
PROVIDERS: PCP Family Medicine; Visit Provider Obstetrics & Gynecology
DX: Z12.31 Encounter for screening mammogram for malignant neoplasm of breast (principal); Z80.1 Family history of malignant neoplasm of trachea, bronchus and lung; Z80.3 Family history of malignant neoplasm of breast; Z80.0 Family history of malignant neoplasm of digestive organs
CPT/HCPCS: 77063; 77067